=== PATIENT | female | born 1940 | race Caucasian/White ===

== ENCOUNTER → 2016-09-03 | Outpatient (REF) | payer MEDICARE ==
[2016-09-03 14:05] LABS: ALBUMIN 3.8 GM/DL (3.2-5.2); ALBUMIN/GLOBULIN RATIO 1.15 (1.00-1.93); ALKALINE PHOSPHATASE 102 U/L (45-117); ALT/SGPT 16 U/L (12-78); ANION GAP 10 MEQ/L (8-16); AST/SGOT 18 U/L (15-37); BILIRUBIN,TOTAL 0.2 MG/DL (0.2-1.0); BLOOD UREA NITROGEN 17 MG/DL (7-18); CALCIUM LEVEL 9.2 MG/DL (8.8-10.2); CARBON DIOXIDE LEVEL 26 MEQ/L (21-32); CHLORIDE LEVEL 105 MEQ/L (98-107); GLOMERULAR FILTRATION RATE > 60.0 (>39); GLUCOSE, FASTING 91 MG/DL (83-110); POTASSIUM SERUM 4.6 MEQ/L (3.5-5.1); SODIUM LEVEL 141 MEQ/L (136-145); TOTAL PROTEIN 7.1 GM/DL (6.4-8.2)
== END ==
LOC: M SFHCPLAZ 09:27
PROVIDERS: ATTEND Nurse Practitioner Adult Health
DX: I10 Essential (primary) hypertension (principal); E55.9 Vitamin D deficiency, unspecified
CPT/HCPCS: 36415; 80053; 82306; G0463

== ENCOUNTER → 2016-09-24 | Outpatient (REF) | payer MEDICARE ==
[2016-09-28 00:15] LABS: BABESIOSIS LEVEL IGG <1:10 (Neg:<1:10); BABESIOSIS LEVEL IGM <1:10 (Neg:<1:10); Lyme Disease IgG/IgM Antibodie <0.91 ISR (0.00-0.90); Lyme Disease IgM Ab Quantitati <0.80 index (0.00-0.79)
== END ==
LOC: M LAB REF 16:28
PROVIDERS: ATTEND Physician Assistant
DX: S20.462A Insect bite (nonvenomous) of left back wall of thorax, initial encounter (principal); X58.XXXA Exposure to other specified factors, initial encounter; Y92.89 Other specified places as the place of occurrence of the external cause; Y93.89 Activity, other specified; Y99.8 Other external cause status

== ENCOUNTER → 2017-02-26 | Outpatient (CLI) | payer MEDICARE ==
[~2017-02-26] MED LIST: E-Z-GAS II EFFERVESCENT PACKET (SODIUM BICARB./CITRIC ACID/SIMETHICONE) As Ordered ONE; E-Z-HD 98% w/w 340GM SUSP BTL As Ordered ONE; E-Z-PAQUE 96% w/w SUSP 176GM BTL As Ordered ONE
--- NOTE | 2017-02-26 18:46 | REP ---
Esophagram The procedure was performed under the direct supervision of Dr. Swann. The images were reviewed with Dr. Swann. A single view PA chest x-ray is submitted as a sales specialist film. There is no change compared to a previous chest x-ray performed on 08/12/2016. Liquid barium and gas producing granules were given in the erect position as well as liquid barium in the prone oblique positions in order to perform a double contrast esophagram examination. The oral and pharyngeal stages of deglutition are unremarkable. There are esophageal transport there are tertiary waves demonstrated. There is no esophagitis stricture or mucosal ring. There is a sliding type hiatal hernia present. Gastroesophageal reflux is not demonstrated on this examination. Impression: 1. There is a sliding type hiatal hernia present. 2. Esophageal dysmotility. 1 minute and 7 seconds of fluoro time was utilized for this procedure. Reviewed by WALKER Whitt 02/26/2017 04:13 PSigned by Richi Swann MD 02/26/2017 06:37 P
== END ==
LOC: M RAD 08:54
PROVIDERS: ATTEND Nurse Practitioner Adult Health
DX: K44.9 Diaphragmatic hernia without obstruction or gangrene (principal)

== ENCOUNTER → 2017-05-13 | Outpatient (CLI) | payer MEDICARE ==
--- NOTE | 2017-05-13 15:15 | REP ---
RIGHT KNEE, FIVE VIEWS: HISTORY: Pain. There is no acute fracture or dislocation. There is narrowing of the joint spaces. Osteophytes are present on the tibia and patella. The bony structure is osteopenic. IMPRESSION: Degenerative change as described above. Signed by Jordan De Paz MD 05/13/2017 03:18 P
== END ==
LOC: M LAB 14:42
PROVIDERS: ATTEND Nurse Practitioner Adult Health
DX: M25.761 Osteophyte, right knee (principal); M25.561 Pain in right knee

== ENCOUNTER → 2017-11-05 | Outpatient (CLI) | payer MEDICARE | LOC: M LRY 14:45 | DX: M16.11 Unilateral primary osteoarthritis, right hip (principal); M25.551 Pain in right hip; M47.816 Spondylosis without myelopathy or radiculopathy, lumbar region; R10.2 Pelvic and perineal pain | CPT/HCPCS: G0463 ==

== ENCOUNTER → 2018-01-20 | Outpatient (CLI) | payer MEDICARE | LOC: M RAD 07:13 | DX: M48.062 Spinal stenosis, lumbar region with neurogenic claudication (principal) | CPT/HCPCS: 72148 ==

== ENCOUNTER → 2018-02-11 | Outpatient (CLI) | payer MEDICARE | LOC: M LRY 14:56 | DX: M51.36 Other intervertebral disc degeneration, lumbar region (principal); M51.37 Other intervertebral disc degeneration, lumbosacral region; M43.17 Spondylolisthesis, lumbosacral region; R07.81 Pleurodynia; M53.3 Sacrococcygeal disorders, not elsewhere classified | CPT/HCPCS: 71101; 90715 ==

== ENCOUNTER → 2018-04-16 | Outpatient (REF) | payer MEDICARE ==
[2018-04-16 14:08] LABS: BASO % 0.7 % (0.0-1.0); EOS # 0.2 10^3/uL (0.0-0.50); EOS % 3.2 % (0.0-3.0); HEMATOCRIT 45.8 % (36.0-47.0); HEMOGLOBIN 14.8 g/dl (12.0-15.5); IMMATURE GRANULOCYTE % 0.5 % (0-3.0); LYMPH # 1.7 10^3/uL (1.5-4.5); LYMPH % 28.9 % (24.0-44.0); MEAN CORPUSCULAR HEMOGLOBIN 29.1 pg (27.0-33.0); MEAN CORPUSCULAR HGB CONC 32.3 g/dl (32.0-36.5); MONO # 0.4 10^3/uL (0.0-0.8); MONO % 7.2 % (0.0-5.0); NEUTROPHILS # 3.6 10^3/uL (1.8-7.7); NEUTROPHILS % 59.5 % (36.0-66.0); PLATELET COUNT, AUTOMATED 224 10^3/uL (150-450); RED BLOOD COUNT 5.09 10^6/uL (4.00-5.40)
[2018-04-16 14:55] LABS: ERYTHROCYTE SEDIMENTATION RATE 11 mm/hr (0-30)
[2018-04-16 15:03] LABS: ALBUMIN 3.9 GM/DL (3.2-5.2); ALBUMIN/GLOBULIN RATIO 1.15 (1.00-1.93); ALKALINE PHOSPHATASE 114 U/L (45-117); ALT/SGPT 17 U/L (12-78); ANION GAP 10 MEQ/L (8-16); AST/SGOT 15 U/L (7-37); BILIRUBIN,TOTAL 0.4 MG/DL (0.2-1.0); BLOOD UREA NITROGEN 14 MG/DL (7-18); CALCIUM LEVEL 9.1 MG/DL (8.8-10.2); CARBON DIOXIDE LEVEL 24 MEQ/L (21-32); CHLORIDE LEVEL 106 MEQ/L (98-107); CREATININE FOR GFR 0.71 MG/DL (0.55-1.30); FOLATE 11.9 NG/ML; GLOMERULAR FILTRATION RATE > 60.0 (>39); GLUCOSE, FASTING 99 MG/DL (70-100); POTASSIUM SERUM 4.1 MEQ/L (3.5-5.1); RHEUMATOID FACTOR QUANT < 10.0 IU/ML (<15.0); SODIUM LEVEL 140 MEQ/L (136-145); TOTAL PROTEIN 7.3 GM/DL (6.4-8.2)
[2018-04-16 16:25] LABS: ESTIMATED AVERAGE GLUCOSE 111 MG/DL (60-110); HEMOGLOBIN A1c 5.5 %
[2018-04-21 11:12] LABS: ALBUMIN 4.24 GM/DL (3.29-5.55); ALBUMIN % 58.1 % (55.8-66.1); ALPHA-1-GLOBULINS 0.29 GM/DL (0.17-0.41); BETA-1-GLOBULINS 0.45 GM/DL (0.28-0.60); BETA-1-GLOBULINS % 6.2 % (4.7-7.2); BETA-2-GLOBULINS % 5.5 % (3.2-6.5); GAMMA GLOBULIN % 15.2 % (11.1-18.8); GAMMA GLOBULINS 1.11 GM/DL (0.65-1.58)
[2018-04-21 11:44] LABS: DRVV SCREEN 40.9 SEC
[2018-04-22 00:07] LABS: ANCA-ATYPICAL <1:20 titer (Neg:<1:20); ANTI DOUBLE STRAND-DNA AB <1 IU/mL (0-9); ANTINUCLEAR ANTIBODIES DIRECT Negative (Negative); COPPER PLASMA 135 ug/dL (72-166); CYTOPLASMIC NEUTROP AB ANCA-C <1:20 titer (Neg:<1:20); LEAD BLOOD ADULT 2 ug/dL (0-4); Lyme Disease IgG/IgM Antibodie <0.91 ISR (0.00-0.90); Lyme Disease IgM Ab Quantitati <0.80 index (0.00-0.79); MERCURY LEVEL None Detected ug/L (0.0-14.9); PERINUCLEAR AB ANCA-P <1:20 titer (Neg:<1:20); SJOGREN'S ANTI SS-A <0.2 AI (0.0-0.9); SJOGREN'S ANTI SS-B <0.2 AI (0.0-0.9); VITAMIN B1 LEVEL WHOLE BLOOD 160.4 nmol/L (66.5-200.0); VITAMIN B6,PYRIDOXAL PHOSPHATE 5.3 ug/L (2.0-32.8); VITAMIN E(GAMMA TOCOPHEROL) 1.1 mg/L (0.5-4.9)
== END ==
LOC: M LABNEURO 13:03
DX: G62.9 Polyneuropathy, unspecified (principal); E07.9 Disorder of thyroid, unspecified
CPT/HCPCS: 82525

== ENCOUNTER → 2018-06-09 | Outpatient (CLI) | payer MEDICARE | LOC: M LAB 13:54 | DX: M51.35 Other intervertebral disc degeneration, thoracolumbar region (principal); G62.9 Polyneuropathy, unspecified | CPT/HCPCS: 72070 ==

== ENCOUNTER → 2018-06-09 | Outpatient (REF) | payer MEDICARE ==
[2018-06-09 16:34] LABS: BASO # 0.1 10^3/uL (0.0-0.2); BASO % 1.1 % (0.0-1.0); EOS # 0.2 10^3/uL (0.0-0.50); EOS % 3.4 % (0.0-3.0); HEMATOCRIT 42.1 % (36.0-47.0); HEMOGLOBIN 13.7 g/dl (12.0-15.5); IMMATURE GRANULOCYTE % 0.4 % (0-3.0); LYMPH # 2.1 10^3/uL (1.5-4.5); LYMPH % 37.2 % (24.0-44.0); MEAN CORPUSCULAR HEMOGLOBIN 29.2 pg (27.0-33.0); MEAN CORPUSCULAR HGB CONC 32.5 g/dl (32.0-36.5); MEAN CORPUSCULAR VOLUME 89.8 fl (80.0-96.0); MONO # 0.5 10^3/uL (0.0-0.8); NEUTROPHILS # 2.8 10^3/uL (1.8-7.7); NEUTROPHILS % 48.9 % (36.0-66.0); PLATELET COUNT, AUTOMATED 258 10^3/uL (150-450); RED BLOOD COUNT 4.69 10^6/uL (4.00-5.40); RED CELL DISTRIBUTION WIDTH 12.8 % (11.5-14.5); WHITE BLOOD COUNT 5.7 10^3/uL (4.0-10.0)
[2018-06-09 16:51] LABS: C REACTIVE PROTEIN QUANTITATIV < 0.30 MG/DL (0.00-0.30); FREE T4 0.86 NG/DL (0.76-1.46); VITAMIN B12 LEVEL 495 PG/ML (247-911)
[2018-06-09 16:57] LABS: ERYTHROCYTE SEDIMENTATION RATE 8 mm/hr (0-30)
[2018-06-09 17:06] LABS: URINE TOTAL PROTEIN 6.2 MG/DL (0-12)
[2018-06-11 13:43] LABS: ALBUMIN 4.02 GM/DL (3.29-5.55); ALBUMIN % 57.4 % (55.8-66.1); ALPHA-1-GLOBULIN % 3.9 % (2.9-4.9); ALPHA-2-GLOBULINS % 10.9 % (7.1-11.8); BETA-1-GLOBULINS % 6.4 % (4.7-7.2); BETA-2-GLOBULINS % 5.4 % (3.2-6.5)
[2018-06-11 13:44] LABS: ALPHA-1-GLOBULINS 0.27 GM/DL (0.17-0.41); ALPHA-2-GLOBULINS 0.76 GM/DL (0.42-0.99); BETA-1-GLOBULINS 0.45 GM/DL (0.28-0.60); BETA-2-GLOBULINS 0.38 GM/DL (0.19-0.55); GAMMA GLOBULINS 1.12 GM/DL (0.65-1.58)
[2018-06-11 14:22] LABS: ANTINUCLEAR ANTIBODIES DIRECT Negative (Negative)
[2018-06-11 15:21] LABS: UPEP INTERPRETATION NO M-SPIKE NOTED; URINE VOLUME RANDOM ML
== END ==
LOC: M SFHCPLAZ 12:55
DX: G62.9 Polyneuropathy, unspecified (principal)

== ENCOUNTER → 2018-06-10 | Outpatient (CLI) | payer MEDICARE | LOC: M WHC 08:00 | DX: Z12.31 Encounter for screening mammogram for malignant neoplasm of breast (principal); Z80.3 Family history of malignant neoplasm of breast; Z85.820 Personal history of malignant melanoma of skin; Z80.0 Family history of malignant neoplasm of digestive organs; Z80.41 Family history of malignant neoplasm of ovary | CPT/HCPCS: 77067 ==

== ENCOUNTER → 2018-07-27 | Outpatient (REF) | payer MEDICARE ==
[2018-07-31 00:35] LABS: Lyme Disease IgG/IgM Antibodie <0.91 ISR (0.00-0.90); Lyme Disease IgM Ab Quantitati <0.80 index (0.00-0.79)
== END ==
LOC: M SFHCPLAZ 11:09
PROVIDERS: ATTEND Family Medicine
DX: G60.9 Hereditary and idiopathic neuropathy, unspecified (principal)
CPT/HCPCS: 36415; 86617; G0463

== ENCOUNTER 2018-10-28 22:52 | Observation (INO) | payer MEDICARE ==
[~2018-10-28] VITALS: Ht 172.7 cm; Wt 86.4 kg
[2018-10-28] MEDS ORDERED: CARD1TAB5 PO (22:56)
[2018-10-28] MEDS ORDERED: EFFE37.5 PO (22:56)
--- NOTE | 2018-10-29 00:06 | REP ---
Clinical: Fall. Rib pain . Comparison: None. Technique: PA and lateral. Findings: The mediastinum and cardiac silhouette are normal. The lung gregorio are clear and without acute consolidation, effusion, or pneumothorax. No obvious rib fracture is appreciated although evaluation is limited and if necessary complete wrist series should be considered. Impression: 1. No acute cardiopulmonary process. Electronically Signed by Master Lopez MD 10/28/2018 11:58 P
[2018-10-29] MEDS ORDERED: NORCO, ANEXSIA 5/325MG TABLET (HYDROcodone/ACETAMINOPHEN) PO ONE (00:15)
--- NOTE | 2018-10-29 01:22 | REPVR ---
EXAM: CT Chest Without Contrast EXAM DATE/TIME: 10/28/2018 11:59 PM CLINICAL HISTORY: 78 years old, female; Injury or trauma; Fall; Initial encounter; Blunt trauma (contusions or hematomas); Additional info: Fall, chest pain, back pain TECHNIQUE: Imaging protocol: Axial computed tomography images of the chest without intravenous contrast. Coronal and sagittal reformatted images were created and reviewed. 3D rendering: MIP reconstructed images were created and reviewed. Radiation optimization: All CT scans at this facility use at least one of these dose optimization techniques: automated exposure control; mA and/or kV adjustment per patient size (includes targeted exams where dose is matched to clinical indication); or iterative reconstruction. COMPARISON: CR Chest, 2 view PA, Lat 10/28/2018 11:39 PM FINDINGS: Lungs: Minimal bilateral lower lobe fibro-atelectatic change and bronchiectasis. Pleural space: Normal. No pneumothorax. No pleural effusion. Heart: Normal. No cardiomegaly. No pericardial effusion. Aorta: Normal. No aortic aneurysm. Lymph nodes: Unremarkable. No enlarged lymph nodes. Bones/joints: Osteopenia. Nondisplaced fractures of the right 6th-9th of ribs laterally. Slightly displaced fracture of the right 8th rib posteriorly and nondisplaced fracture of the adjacent 7th rib posteriorly. 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 No significant posterior extension is noted. Question of nondisplaced fracture of the right transverse process of T9, however. Soft tissues: Subcutaneous induration posteriorly to the right of midline at approximately the T8-T10 levels. Gallbladder and bile ducts: The gallbladder is contracted with no stones. IMPRESSION: 1. Nondisplaced fractures of the right 6th-9th ribs laterally and slightly displaced fracture of the right 8th rib posteriorly with nondisplaced fracture of the adjacent 7th rib posteriorly. 2. 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 No significant posterior extension is noted, however, there is question of a nondisplaced fracture of the right transverse process of T9. 3. Minimal bilateral lower lobe fibro-atelectatic change and bronchiectasis. 4. Subcutaneous edema posteriorly to the right of midline from approximately T8-T10. 5. Otherwise negative CT chest. Electronically signed by: Juan Luis De La Rosa On 10/29/2018 01:21:55 AM
[2018-10-29] MEDS ORDERED: VENL37.598 PO (02:33)
[2018-10-29] MEDS ORDERED: ASPI81TAEC PO (02:33)
[2018-10-29] MEDS ORDERED: CHEL100T4 PO (02:33)
[2018-10-29] MEDS ORDERED: DILT120C31 PO (02:33)
[2018-10-29] MEDS ORDERED: KETOROLAC 30 MG/ML VIAL (J1885) IV PRN (02:45)
[2018-10-29] MEDS ORDERED: MORPHINE 4 MG/ML 1ML VIAL/SYRINGE (J2270) IV PRN (02:45)
[2018-10-29 03:00] VITALS: BP 171/90
[2018-10-29] MEDS ORDERED: SLF 3 ML SYR IV PRN (03:00)
[2018-10-29 06:00] VITALS: BP 168/78
[2018-10-29] MEDS ORDERED: SLF 3 ML SYR IV SCH (06:00)
[2018-10-29] MEDS ORDERED: VENLAFAXINE **XR** 37.5 MG CAPSULE PO SCH (09:00)
[2018-10-29 10:57] LABS: BASO # 0.1 10^3/uL (0.0-0.2); BASO % 0.7 % (0.0-1.0); EOS # 0.1 10^3/uL (0.0-0.50); EOS % 1.8 % (0.0-3.0); HEMATOCRIT 37.8 % (36.0-47.0); HEMOGLOBIN 12.6 g/dl (12.0-15.5); LYMPH % 26.5 % (24.0-44.0); MEAN CORPUSCULAR HEMOGLOBIN 29.4 pg (27.0-33.0); MEAN CORPUSCULAR HGB CONC 33.3 g/dl (32.0-36.5); MEAN CORPUSCULAR VOLUME 88.1 fl (80.0-96.0); MONO # 0.7 10^3/uL (0.0-0.8); NEUTROPHILS # 4.6 10^3/uL (1.8-7.7); NEUTROPHILS % 61.6 % (36.0-66.0); PLATELET COUNT, AUTOMATED 227 10^3/uL (150-450); RED BLOOD COUNT 4.29 10^6/uL (4.00-5.40); WHITE BLOOD COUNT 7.4 10^3/uL (4.0-10.0)
[2018-10-29 11:06] LABS: INR 1.11; PROTHROMBIN TIME 14.4 SECONDS (12.1-14.4)
[2018-10-29 11:07] LABS: PARTIAL THROMBOPLASTIN TIME 24.5 SECONDS (25.4-37.6)
[2018-10-29 11:11] VITALS: BP 168/78
[2018-10-29 11:20] LABS: BLOOD UREA NITROGEN 18 MG/DL (7-18); CALCIUM LEVEL 8.7 MG/DL (8.8-10.2); CARBON DIOXIDE LEVEL 25 MEQ/L (21-32); CHLORIDE LEVEL 110 MEQ/L (98-107); CREATININE FOR GFR 0.79 MG/DL (0.55-1.30); GLOMERULAR FILTRATION RATE > 60.0 (>39); GLUCOSE, FASTING 103 MG/DL (70-100); POTASSIUM SERUM 3.8 MEQ/L (3.5-5.1); SODIUM LEVEL 140 MEQ/L (136-145)
--- NOTE | 2018-10-29 12:34 | HPE ---
DATE OF ADMISSION: 10/29/2018 CHIEF COMPLAINT: T9 thoracic spine fracture. HISTORY OF PRESENT ILLNESS: This 78-year-old female has preexisting adenopathy to her right lower extremity from about the mid tibia downwards. She was walking to the washroom last night and had a mechanical fall. There was no loss of consciousness, head injury or any other injuries. She was able to ambulate and get up and around with some assistance last night, but increased pain brought her into the hospital. She has no previous history of spine fractures or problems of her spine. In fact, she has had MRIs of her spine that were in fact negative for any kind of compressive pathology. Due to this preexisting neuropathy with decreased sensation in her right lower extremity, she has seen Dr. Bates in the past as well for nerve conduction/electromyogram (EMG) studies. They apparently were normal, so the diagnosis is still up in the air as to the cause of her right lower extremity sensory changes. She has no perianal sensation changes. No changes in the lower extremity function or preexisting neuropathy, and no constitutional symptoms such as fever, chills, night sweats, weight loss or anything else. Bowel and bladder function were normal. PAST MEDICAL HISTORY: Includes heart arrhythmia and depression. MEDICATIONS: Include: - venlafaxine 37.5 mg by mouth once daily - diltiazem 120 mg by mouth once daily NO KNOWN DRUG ALLERGIES. SURGICAL HISTORY: She had an attempted cardiac ablation as well as total abdominal hysterectomy (KRISHAN), appendectomy, hysterectomy, left distal femur osteomyelitis debridement times two, and rotator cuff surgery. 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 She does not smoke cigarettes. She is here with her and they are living independently. PHYSICAL EXAMINATION: Vital signs: Blood pressure 168/78. Pulse rate 69. Temperature 97.2. Respiratory rate 16. 95% on room air. She is alert and times three. Mood and affect pleasant and positive. She is lying supine in bed and she is able to sit up and roll over independently. Inspection of her back reveals no obvious overlying redness, swelling, ecchymosis, deformity or atrophy. On palpation, there is only a mild tenderness at the approximately mid to lower thoracic spine with no bogginess or other findings. Upon questioning, she does have a normal sensation in perianal region. Inspection of the lower extremities reveal normal alignment. No overlying redness, swelling, ecchymosis or deformity. She had normal sensation aside from as she previously stated about the mid tibia down throughout her entire foot on the dorsum and plantar aspect of that. Normal sensation throughout the left lower extremity. She was strong from L2 to S1, although slightly weak in right L5, I would grade as a 4+/5. No clonus. Feet are warm and perfused. Reflexes were slightly diminished at the knees and ankles but symmetric bilaterally. Plantars equivocal. Chest x-rays reviewed. This shows global diffuse thoracic kyphosis but no collapse or acute change. CT chest was also reviewed. This shows nondisplaced fractures of the right 6th to 9th ribs and slightly just displaced fracture of right 8th rib posteriorly with a nondisplaced fracture of the adjacent 7th rib posteriorly. There is also ankylosis through much of the thoracic spine with transverse fracture involving the anterior inferior aspect of the T9 segment right greater than left with extension at T9-10 interspace. No posterior extension is noted. There is question of a nondisplaced fracture of the right transverse process of T9, but again this is somewhat limited by bone quality as well as this is not a dedicated study of thoracic spine. I see no acute kyphotic changes at that level. The canal appears patent at that level as well. This involves minimal height loss. The fractures relatively undisplaced. ASSESSMENT AND PLAN: This 78-year-old female appears to be ambulating well and has no new neurologic deficits. This appears to be a stable fracture, although there is some concern given the fact that she has ankylosis throughout the thoracic spine. I do believe this to be a stable fracture; however, I have suggested to both the patient as well as will write in this note that she should followup with Dr. Gray in 3-5 days, our local spine surgeon at [facility] ([facility] for repeat imaging. I let him as well as the patient and the general surgeon, Dr. Rueda, who is following the patient that this should be the plan for her for outpatient followup. I have also warned the patient as to any red flag symptoms that would warrant immediate return to the clinic or the emergency department, including changes in bowel or bladder function and changes in her lower extremity function and sensory problems. I think it is reasonable to discharge her home today as according to Dr. Rueda she is doing well with her breathing and incentive spirometer despite the rib fractures. The patient is quite comfortable and agrees with plan. Thank you very much for involving me in her care.
[2018-10-29] MEDS ORDERED: NORC1TAB7 PO (12:55)
--- NOTE | 2018-10-29 15:12 | HPE ---
DATE OF ADMISSION: 10/29/2018 CHIEF COMPLAINT: Fall. HISTORY OF PRESENT ILLNESS: This is a 78-year-old female who has a past medical history significant for neuropathy. She states that she had to use the bathroom last night and ended falling because she could not see where she was going. She was unable to really feel where she is going as she has neuropathy from about the mid tibia downwards. She denies any loss of consciousness, head injury, bruising or other injuries except for pain to her ribcage. As it was dark, she suffered a mechanical fall and landed onto a metal box. REVIEW OF SYSTEMS GENERAL: Denies fevers, chills, night sweats, weight changes. HEENT: No new vision or hearing changes. She denies sore throat, runny nose, stuffy nose. PULMONARY: No wheezing coughs or difficulty breathing. CARDIOVASCULAR: No palpitations, chest pain, orthopnea, paroxysmal nocturnal dyspnea, or edema. GASTROINTESTINAL: Denies any nausea, vomiting, diarrhea, constipation. GENITOURINARY: Denies any hesitancy, dysuria, frequency or difficulty urinating. MUSCULOSKELETAL: Positive for pain to her ribcage. No changes to lower extremity range of motion. Denies any other lumps or bumps or any other pain. NEUROLOGICAL: Positive for lower extremity neuropathy as above. Denies any loss of bowel or bladder function. PSYCHIATRIC: Negative for anxiety, positive for history of depression. INTEGUMENTARY: Denies any rashes stria or dermal lesions. ENDOCRINE: Denies any night sweats, diarrhea, constipation, tremor, polydipsia or polyuria. HEMATOLOGIC: Denies any easy bruising or bleeding. LYMPHATIC: Denies any new lumps or bumps anywhere. PAST MEDICAL HISTORY: Vitamin D deficiency. Depression. Hypercholesterolemia. 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 Basal cell carcinoma of the forehead. Osteopenia. Coronary artery disease. Neuropathy of the lower extremities. Left knee osteomyelitis at 29 and 30. This was surgically removed. Spinal stenosis. Osteoarthritis. 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 Osteomyelitis of the left femur debrided at age 29. Hysterectomy in 1986. Appendectomy 1962. Right Meniscal repair at [facility] [address] Esteves 2006, which was normal. FAMILY HISTORY: Diabetes mellitus type 1, diabetes mellitus type 2, breast cancer, colon cancer, uterine cancer. Osteoporosis, hypertension. SOCIAL HISTORY: The patient is a nonsmoker. She denies any drug use, She denies alcohol use. 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. She is and recently returned from [place]. PHYSICAL EXAMINATION VITALS: Temperature 97.2, pulse 69 and regular, respiratory rate 19, blood pressure 171/90, pulse ox is 98% on room air. GENERAL: This is a pleasant elderly female in no acute distress. She is able to sit up and roll over independently. HEENT: Eyes are clear. Pupils are equal, round and reactive to light. Mucous membranes are moist. NECK: No lymphadenopathy is appreciated. LUNGS: Clear to auscultation bilaterally. No wheezes, rhonchi or rales. HEART: Regular rate and rhythm. No murmurs, gallops or rubs. ABDOMEN: Obese, no distension. Normoactive bowel sounds. No pain to palpation in all four quadrants. MUSCULOSKELETAL: There is no redness, swelling, ecchymosis, no deformities of this back. She has some mild tenderness to palpation in the mid or lower thoracic spine. SKIN: There is no erythema or edema bilaterally. NEURO: The patient has diminished sensation from about the mid tibia down through her entire foot on the right. VASCULAR: The patient has good pulses throughout. LABORATORY DATA: CBC: WBC 7.4, hemoglobin 12.2, hematocrit 37.8, platelets 227. CHEMISTRY: Sodium 140, potassium 3.8, chloride 110, carbon dioxide 25, anion gap 5, BUN 18, creatinine 0.79, fasting glucose 103, calcium 8.7. COAGULATION: PT 14.4, INR 1.11, APTT 24.5. IMAGING STUDIES: Chest x-ray done 10/28/2018: Showed no obvious rib fracture however, the evaluation was limited. No acute cardiopulmonary process is appreciated. CT of the chest done showed nondisplaced fractures of the right 6th through 9th ribs laterally and slightly displaced fracture of the right 8th rib posteriorly with nondisplaced fracture of the adjacent 7th rib posteriorly. 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 No significant posterior extension is noted. However, there is question of a nondisplaced fracture of the right transverse process of T9. Minimal bilateral lower lobe fibroatelectatic changes and bronchiectasis. Subcutaneous edema posteriorly to the right of midline from approximately T8 to T10. Otherwise negative chest CT. ASSESSMENT: This is a 78-year-old female who suffered a mechanical fall and ended up with rib fractures. PLAN: 1. Rib fractures: Admit to observation. We will make sure that she has pain controlled and complete incentive spirometry. We have ordered an orthopaedic consultation, Dr. Flores will see her sometime today. As long as the patien's pain is well-controlled and she is able to perform incentive spirometry then she can be probably discharged home sometime today. 2. Depression: Continue her home dose of venlafaxine. 3. Hypertension, continue the patient's home diltiazem. DISPOSITION: Admit for observation, pending possible discharge for pain control and incentive spirometry. My faculty preceptor for this patient encounter was physically present during the encounter and was fully available. All aspects of the patient interview, examination, medical decision making process, and medical care plan development were reviewed and approved by the faculty preceptor. The faculty preceptor is aware and concurs with the plan as stated in the body of this note and will attest to such by his/her co-signature. I was present for the entire H+P. She had a T9 fracture in addition to the rib fractures. Dr. Flores saw her for the T9 fracture, and cleared her to go home with a follow up for Dr. Gray in the office in a week. Rib fractures are stable as well, and we will d/c her today to follow up as needed. Bethel WEATHERS
== END 2018-10-29 13:37 | disposition home or self-care (01) ==
LOC: M ED 22:52 → UNDOADMOB 23:00 → M ED INP 23:00 → M MSPAV 23:00 → UNDOADMOB 10-29 01:55 → M ED INP 10-29 01:55 → M MSPAV 10-29 03:00 → UNDODISOB 10-29 13:37 → M ED INP 11-18 16:19 → M MSPAV 11-18 16:19
PROVIDERS: ADMIT Family Medicine; ATTEND Family Medicine
DX: S22.41XA Multiple fractures of ribs, right side, initial encounter for closed fracture (principal); S22.079A Unspecified fracture of T9-T10 vertebra, initial encounter for closed fracture; W19.XXXA Unspecified fall, initial encounter; Y92.008 Other place in unspecified non-institutional (private) residence as the place of occurrence of the external cause; Y93.9 Activity, unspecified; Y99.9 Unspecified external cause status; E55.9 Vitamin D deficiency, unspecified; E78.00 Pure hypercholesterolemia, unspecified; I10 Essential (primary) hypertension; I25.10 Atherosclerotic heart disease of native coronary artery without angina pectoris; Z79.82 Long term (current) use of aspirin; F32.9 Major depressive disorder, single episode, unspecified; Z79.899 Other long term (current) drug therapy; Z88.8 Allergy status to other drugs, medicaments and biological substances; Z91.81 History of falling
CPT/HCPCS: 36415; 71046; 71250; 80048; 85025; 85610; 85730; 96374; 99284; G0378; J1885

== ENCOUNTER 2018-11-03 17:50 | Emergency (ER) | payer MEDICARE ==
[~2018-11-03] VITALS: Ht 172.7 cm; Wt 84.1 kg
[~2018-11-03 17:50] MED LIST changes: +ASPI81TAEC PO; +CARD1TAB5 PO; +CHEL100T4 PO; +DILT120C31 PO; -E-Z-GAS II EFFERVESCENT PACKET (SODIUM BICARB./CITRIC ACID/SIMETHICONE) As Ordered ONE; -E-Z-HD 98% w/w 340GM SUSP BTL As Ordered ONE; -E-Z-PAQUE 96% w/w SUSP 176GM BTL As Ordered ONE; +EFFE37.5 PO; +NORC1TAB7 PO; +VENL37.598 PO
[2018-11-03] MEDS ORDERED: BONI1TAB PO (17:58)
[2018-11-03] MEDS ORDERED: EQL400CA9 PO (17:58)
[2018-11-03] MEDS ORDERED: HYDR-3713 PO (17:58)
--- NOTE | 2018-11-03 18:40 | REP ---
PA and lateral chest: Comparison is 10/28/2018. On the study today the posterior sulci are obscured on the lateral view as an interval change suggestive of lower lobe infiltrate versus small posterior pleural effusion. This cannot be lateralized as is identified only on the lateral view. Lung gregorio otherwise clear. Cardiac size normal. The stalin, mediastinum, skeletal structures are unremarkable. Impression: Small lower lobe infiltrate versus pleural effusion as described, as an interval change from 10/28/2018. CT might be considered for confirmation if felt clinically indicated. Electronically Signed by Trung Sheppard MD 11/03/2018 06:32 P
[2018-11-03 20:33] LABS: BASO % 0.2 % (0.0-1.0); EOS # 0.1 10^3/uL (0.0-0.50); EOS % 0.9 % (0.0-3.0); HEMATOCRIT 45.8 % (36.0-47.0); HEMOGLOBIN 15.1 g/dl (12.0-15.5); LYMPH # 1.9 10^3/uL (1.5-4.5); LYMPH % 21.9 % (24.0-44.0); MEAN CORPUSCULAR HEMOGLOBIN 29.2 pg (27.0-33.0); MEAN CORPUSCULAR VOLUME 88.4 fl (80.0-96.0); MONO # 0.6 10^3/uL (0.0-0.8); MONO % 6.9 % (0.0-5.0); NEUTROPHILS % 69.8 % (36.0-66.0); PLATELET COUNT, AUTOMATED 253 10^3/uL (150-450); RED BLOOD COUNT 5.18 10^6/uL (4.00-5.40); WHITE BLOOD COUNT 8.7 10^3/uL (4.0-10.0)
[2018-11-03 20:46] LABS: INR 0.99; PROTHROMBIN TIME 13.2 SECONDS (12.1-14.4)
[2018-11-03 20:47] LABS: PARTIAL THROMBOPLASTIN TIME 26.2 SECONDS (25.4-37.6)
[2018-11-03 20:49] LABS: ALBUMIN 3.5 GM/DL (3.2-5.2); ALT/SGPT 19 U/L (12-78); BILIRUBIN,DIRECT < 0.1 MG/DL (0.0-0.2); BILIRUBIN,TOTAL 0.3 MG/DL (0.2-1.0); BLOOD UREA NITROGEN 18 MG/DL (7-18); CARBON DIOXIDE LEVEL 24 MEQ/L (21-32); CHLORIDE LEVEL 107 MEQ/L (98-107); CK-MB VALUE MASS < 1.0 NG/ML (<3.6); CPK CREATINE PHOSPHOKINASE 51 U/L (26-192); CREATININE FOR GFR 0.65 MG/DL (0.55-1.30); GLOMERULAR FILTRATION RATE > 60.0 (>39); GLUCOSE, FASTING 107 MG/DL (70-100); MB/CK RELATIVE INDEX 1.96 (< OR =4); POTASSIUM SERUM 4.8 MEQ/L (3.5-5.1); SODIUM LEVEL 137 MEQ/L (136-145); TOTAL PROTEIN 7.3 GM/DL (6.4-8.2); TROPONIN I < 0.02 NG/ML (< 0.10)
[2018-11-03] MEDS ORDERED: ISOVUE-370 76% 100ML VIAL (Q9967) As Ordered ONE (21:52)
--- NOTE | 2018-11-03 23:16 | REPVR ---
EXAM: CT Angiography Chest With Contrast EXAM DATE/TIME: 11/03/2018 10:14 PM CLINICAL HISTORY: 78 years old, female; Signs and symptoms; Shortness of breath; Additional info: SOB TECHNIQUE: Imaging protocol: Axial computed tomographic angiography images of the chest with intravenous contrast using CT angiography protocol. Coronal and sagittal reformatted images were created and reviewed. 3D rendering: MIP reconstructed images were created and reviewed. Radiation optimization: All CT scans at this facility use at least one of these dose optimization techniques: automated exposure control; mA and/or kV adjustment per patient size (includes targeted exams where dose is matched to clinical indication); or iterative reconstruction. Contrast material: ISOVOUE 370 Contrast volume: 75 ml Contrast route: IV COMPARISON: CT Chest without contrast 10/29/2018 12:05 AM FINDINGS: Pulmonary arteries: Normal. No pulmonary emboli. Aorta: Normal. No aortic aneurysm. No aortic dissection. Lungs: Scattered areas of linear atelectasis in bilateral lower lobes. Low lung volumes. Pleural space: Small right and trace left pleural effusion. Heart: Normal. No cardiomegaly. No pericardial effusion. Mediastinum: Small hiatal hernia. Upper abdomen: Elevation of right hemidiaphragm. Lymph nodes: Unremarkable. No enlarged lymph nodes. Bones/joints: Multiple rib fractures on the right side from 6-9 days as seen on prior exam. Diffuse demineralization of the bones without ankylosis. Fracture of the T9 vertebral body similar to previous study. Soft tissues: Unremarkable. Other findings: Atherosclerosis. IMPRESSION: No evidence of pulmonary embolism. Scattered areas of linear atelectasis in bilateral lower lobes. Low lung volumes. Small right and trace left pleural effusion Electronically signed by: Mansi Vasquez On 11/03/2018 23:16:10 PM
[2018-11-03 23:41] VITALS: O2SAT 92
[2018-11-04] VITALS: BP 158/70
--- NOTE | 2018-11-04 06:43 | ED PDOC ---
Post-Departure Follow-Up dr frank faxed formal report of cxr and cta chest for fu Kalie Adams MD Nov 04, 2018 06:43
--- NOTE | 2018-11-04 08:30 | ECGEPIP ---
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
== END 2018-11-04 00:30 | disposition home or self-care (01) ==
LOC: M ED 17:50
DX: J90 Pleural effusion, not elsewhere classified (principal); I44.0 Atrioventricular block, first degree; I45.10 Unspecified right bundle-branch block; I25.10 Atherosclerotic heart disease of native coronary artery without angina pectoris; E78.5 Hyperlipidemia, unspecified; E55.9 Vitamin D deficiency, unspecified; F32.9 Major depressive disorder, single episode, unspecified; M85.80 Other specified disorders of bone density and structure, unspecified site; M19.90 Unspecified osteoarthritis, unspecified site; M48.00 Spinal stenosis, site unspecified; Z79.01 Long term (current) use of anticoagulants; Z79.899 Other long term (current) drug therapy
CPT/HCPCS: 71046; 71275; 80048; 80076; 82550; 82553; 84439; 84443; 84484; 85025; 85610; 85730; 93005; 93041; 94760; 99285; Q9967

== ENCOUNTER → 2019-01-25 | Outpatient (REF) | payer MEDICARE ==
[~2019-01-25] MED LIST changes: +BONI1TAB PO; +EQL400CA9 PO; +HYDR-3713 PO
[2019-01-25 17:04] LABS: BLOOD UREA NITROGEN 17 MG/DL (7-18); GLOMERULAR FILTRATION RATE > 60.0 (>39)
== END ==
LOC: M SFHCPLAZ 12:51
PROVIDERS: ATTEND Family Medicine
DX: H53.2 Diplopia (principal)

== ENCOUNTER → 2019-01-27 | Outpatient (CLI) | payer MEDICARE ==
[~2019-01-27] MED LIST changes: +PROHANCE 279.3MG/ML 15ML VIAL (A9576) As Ordered ONE; +PROHANCE 279.3MG/ML 5ML VIAL (A9576) As Ordered ONE
--- NOTE | 2019-01-27 16:57 | REP ---
MR Brain without and with contrast History: Double vision Contrast: ProHance 17 ml Areas of increased signal intensity on T2-weighted images are present in the periventricular and subcortical white matter. This represents small-vessel ischemic disease. There is no intraparenchymal hemorrhage, infarct, mass or midline shift. There is no abnormal enhancement. The ventricular system and cortical sulci are dilated consistent with mild volume loss. There is no extracerebral collection. The sinuses are clear. Impression: 1. Small vessel ischemic disease. 2. Mild volume loss. Electronically Signed by Jordan De Paz MD 01/27/2019 04:49 P
== END ==
LOC: M RAD 15:18
PROVIDERS: ATTEND Family Medicine
DX: I67.82 Cerebral ischemia (principal)
CPT/HCPCS: 70553; A9576

== ENCOUNTER → 2019-08-03 | Outpatient (REF) | payer MEDICARE ==
[~2019-08-03] MED LIST changes: -PROHANCE 279.3MG/ML 15ML VIAL (A9576) As Ordered ONE; -PROHANCE 279.3MG/ML 5ML VIAL (A9576) As Ordered ONE
[2019-08-03 18:04] LABS: APPEARANCE, URINE CLOUDY (CLEAR); BACTERIA, URINE AUTO 2+ (NEGATIVE); BILIRUBIN, URINE AUTO NEGATIVE (NEGATIVE); BLOOD, URINE BLOOD NEGATIVE (NEGATIVE); COLOR, URINE YELLOW (YELLOW); GLUCOSE, URINE (UA) AUTO NEGATIVE (NEGATIVE); KETONE, URINE AUTO NEGATIVE (NEGATIVE); LEUKOCYTE ESTERASE, URINE AUTO NEGATIVE (NEGATIVE); MUCUS, URINE SMALL (NEGATIVE); NITRITE, URINE AUTO NEGATIVE (NEGATIVE); PROTEIN, URINE AUTO NEGATIVE (NEGATIVE); RBC, URINE AUTO 4 /HPF (0-3); SPECIFIC GRAVITY URINE AUTO 1.018 (1.002-1.035); SQUAMOUS EPITHELIAL CELL UR AU 3 /HPF (0-6); UROBILINOGEN, URINE AUTO 0.2 mg/dL (0.0-2.0); WBC, URINE AUTO 1 /HPF (0-3)
== END ==
LOC: M SFHCPLAZ 16:50
PROVIDERS: ATTEND Nurse Practitioner Family
DX: R30.0 Dysuria (principal)
CPT/HCPCS: 81001; 81002; 87086; G0463

== ENCOUNTER → 2019-10-14 | Outpatient (CLI) | payer MEDICARE ==
--- NOTE | 2019-10-14 15:47 | REPPI ---
CHEST, TWO VIEWS: Two views of the chest are performed and compared to a prior study of 11/03/2018. There is no acute infiltrate or pulmonary edema. Heart is normal in size. There is mild calcification of the thoracic aorta. The mediastinal silhouette is unchanged. There are degenerative changes of the spine. IMPRESSION: No acute pulmonary disease. Electronically Signed by Trung Hankins MD 10/14/2019 05:43 P
== END ==
LOC: M PLAIMG 14:55
PROVIDERS: ATTEND Internal Medicine
DX: R05 Cough (principal)
CPT/HCPCS: 71046; G0463

== ENCOUNTER → 2019-10-19 | Outpatient (REF) | payer MEDICARE ==
[2019-10-19 17:27] LABS: BASO # 0.1 10^3/uL (0.0-0.2); BASO % 0.8 % (0.0-1.0); EOS # 0.2 10^3/uL (0.0-0.5); EOS % 2.4 % (0.0-3.0); HEMATOCRIT 46.7 % (36.0-47.0); HEMOGLOBIN 15.3 g/dl (12.0-15.5); LYMPH # 1.9 10^3/uL (1.5-5.0); LYMPH % 26.6 % (24.0-44.0); MEAN CORPUSCULAR HGB CONC 32.8 g/dl (32.0-36.5); MEAN CORPUSCULAR VOLUME 91.6 fl (80.0-96.0); MONO # 0.6 10^3/uL (0.0-0.8); MONO % 7.7 % (0.0-5.0); NEUTROPHILS # 4.5 10^3/uL (1.5-8.5); NEUTROPHILS % 62.2 % (36.0-66.0); PLATELET COUNT, AUTOMATED 238 10^3/uL (150-450); WHITE BLOOD COUNT 7.2 10^3/uL (4.0-10.0)
[2019-10-19 17:51] LABS: BLOOD UREA NITROGEN 15 MG/DL (7-18); CALCIUM LEVEL 9.5 MG/DL (8.8-10.2); CARBON DIOXIDE LEVEL 26 MEQ/L (21-32); CHLORIDE LEVEL 108 MEQ/L (98-107); CREATININE FOR GFR 0.76 MG/DL (0.55-1.30); GLOMERULAR FILTRATION RATE > 60.0 (>39); GLUCOSE, FASTING 95 MG/DL (70-100); POTASSIUM SERUM 4.4 MEQ/L (3.5-5.1); SODIUM LEVEL 139 MEQ/L (136-145)
== END ==
LOC: M SFHCPLAZ 13:40
PROVIDERS: ATTEND Nurse Practitioner Family
DX: R06.02 Shortness of breath (principal)
CPT/HCPCS: 80048; 85025; G0463

== ENCOUNTER → 2019-10-21 | Outpatient (CLI) | payer MEDICARE ==
--- NOTE | 2019-10-21 16:19 | REP ---
CT chest without contrast: History: Shortness of breath and cough. Comparison chest CT study November 03, 2018. Findings: Preliminary digital wallpaper hanger helper radiographs are unremarkable. The lungs are symmetrically aerated. No infiltrate is seen. There is minimal linear fibrosis in the lung bases bilaterally. No lung mass lesion is appreciated. There is a granulomatous calcification in the right lower lobe unchanged from the prior study. No significant pulmonary nodule is appreciated. Vascular calcification is noted. No hilar or mediastinal mass or adenopathy is observed. No pleural or pericardial effusion is evident. Normal adrenal glands are seen. The visualized upper abdominal structures are unremarkable. No bony destructive lesion is seen. Impression: No active cardiopulmonary disease seen. Mild bibasilar linear fibrosis. Vascular calcification. Electronically Signed by Josh Lopez MD 10/21/2019 04:28 P
== END ==
LOC: M RAD 15:02
PROVIDERS: ATTEND Nurse Practitioner Family
DX: R05 Cough (principal); R06.02 Shortness of breath

== ENCOUNTER 2020-01-21 14:08 | Inpatient (IN) | payer MEDICARE ==
[~2020-01-21] VITALS: Ht 172.7 cm; Wt 86.3 kg
--- NOTE | 2020-01-21 14:52 | REP ---
CT brain: 01/21/2020. Indication: Stroke. Technique: Unenhanced axial CT images of the brain were obtained from skull base to vertex with coronal reconstructions provided. Comparison: 01/27/2019. Findings: There is no acute intracranial hemorrhage, acute cortical infarction, mass effect, hydrocephalus, acute calvarial fracture or significant fluid within the paranasal sinuses/mastoid air cells. Age-related volume loss is present. Patchy areas of white matter hypoattenuation are present within the cerebral hemispheres most consistent with chronic small vessel disease. Impression: No acute intracranial process. Electronically Signed by David Harris DO 01/21/2020 02:42 P
[2020-01-21 14:57] LABS: BASO # 0.1 10^3/uL (0.0-0.2); BASO % 0.7 % (0.0-1.0); EOS # 0.1 10^3/uL (0.0-0.5); EOS % 1.8 % (0.0-3.0); HEMATOCRIT 44.8 % (36.0-47.0); HEMOGLOBIN 14.4 g/dl (12.0-15.5); LYMPH # 1.6 10^3/uL (1.5-5.0); LYMPH % 24.1 % (24.0-44.0); MEAN CORPUSCULAR HEMOGLOBIN 29.1 pg (27.0-33.0); MEAN CORPUSCULAR HGB CONC 32.1 g/dl (32.0-36.5); MEAN CORPUSCULAR VOLUME 90.7 fl (80.0-96.0); MONO # 0.7 10^3/uL (0.0-0.8); MONO % 9.9 % (0.0-5.0); NEUTROPHILS # 4.3 10^3/uL (1.5-8.5); NEUTROPHILS % 63.2 % (36.0-66.0); PLATELET COUNT, AUTOMATED 258 10^3/uL (150-450); RED BLOOD COUNT 4.94 10^6/uL (4.00-5.40); WHITE BLOOD COUNT 6.8 10^3/uL (4.0-10.0)
[2020-01-21 15:17] VITALS: BP 158/64
--- NOTE | 2020-01-21 15:22 | REP ---
Portable chest x-ray: Single view. History: CVA. Comparison chest x-ray: November 03, 2018. Findings: Monitoring electrodes overlie the chest. Lungs are well inflated and clear. Heart is not enlarged. The aorta somewhat tortuous. Pulmonary vasculature is not increased. There is a orthopedic anchor in the humeral head on the right. Impression: No active cardiopulmonary disease. Electronically Signed by Josh Lopez MD 01/21/2020 03:14 P
[2020-01-21 15:26] LABS: CK-MB VALUE MASS 1.3 NG/ML (<3.6); CPK CREATINE PHOSPHOKINASE 51 U/L (26-192); MB/CK RELATIVE INDEX 2.55 (< OR =4); TROPONIN I < 0.02 NG/ML (< 0.10)
[2020-01-21 15:29] LABS: INR 1.05; PROTHROMBIN TIME 13.4 SECONDS (11.8-14.0)
[2020-01-21 15:30] LABS: PARTIAL THROMBOPLASTIN TIME 28.3 SECONDS (25.0-38.4)
[2020-01-21] MEDS ORDERED: VITMTA PO (16:04)
[2020-01-21] MEDS ORDERED: VITA-157 PO (16:04)
[2020-01-21] MEDS ORDERED: MAG-400T7 PO (16:04)
[2020-01-21] MEDS ORDERED: PILL CUTTER 1 EACH XX PRN (19:30)
--- NOTE | 2020-01-21 20:15 | REPVR ---
PROCEDURE INFORMATION: Exam: MR Head Without Contrast Exam date and time: 01/21/2020 7:17 PM Age: 79 years old Clinical indication: Weakness, extremity; Right; Additional info: TIA TECHNIQUE: Imaging protocol: MR of the head without contrast. COMPARISON: MRI-Brain W/O FOLL BY WITH 01/27/2019 3:34 PM FINDINGS: Age-related volume loss. Major vascular flow voids at the skull base are preserved. No extra-axial fluid collection. No midline shift or intracranial mass effect. Nonspecific white matter gliosis, probable chronic microvascular ischemia. There is right frontal and parietal susceptibility secondary to remote hemorrhage. There are several small foci of diffusion restriction involving the left frontal and parietal lobes measuring up to 5 mm in maximal dimension. Associated T2 prolongation. Visualized paranasal sinuses and mastoid air cells are clear. IMPRESSION: There are several small acute to early subacute ischemic infarcts involving the left frontal and parietal lobes measuring up to 5 mm in maximal dimension. Electronically signed by: Josemanuel Monteiro On 01/21/2020 20:15:13 PM
--- NOTE | 2020-01-21 20:18 | REPVR ---
PROCEDURE INFORMATION: Exam: MR Angiogram Head Without Contrast, Arteries Exam date and time: 01/21/2020 7:09 PM Age: 79 years old Clinical indication: Weakness; Additional info: TIA TECHNIQUE: Imaging protocol: MR angiogram head without contrast. Exam focused on the arteries. COMPARISON: MRI-Brain W/O FOLL BY WITH 01/27/2019 3:34 PM FINDINGS: Anterior cerebral arteries: Intracranial segment is patent with no significant stenosis. No aneurysm. Right internal carotid artery: Intracranial segment is patent with no significant stenosis. No aneurysm. 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 Right posterior cerebral artery: Carotid dominant right posterior cerebral artery with hypoplastic right P1 segment. Right vertebral artery: No occlusion or significant stenosis. No aneurysm. Left internal carotid artery: Intracranial segment is patent with no significant stenosis. No aneurysm. Left middle cerebral artery: No occlusion or significant stenosis. No aneurysm. Left posterior cerebral artery: No occlusion or significant stenosis. No aneurysm. Left vertebral artery: Left vertebral artery is dominant. Basilar artery: No occlusion or significant stenosis. No aneurysm. IMPRESSION: 1. No hemodynamically significant stenosis or large vessel occlusion. 2. 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 Electronically signed by: Josemanuel Monteiro On 01/21/2020 20:17:56 PM
--- NOTE | 2020-01-21 20:44 | ECGEPIP ---
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
[2020-01-21 20:45] VITALS: BP 180/90
--- NOTE | 2020-01-21 20:47 | REPVR ---
PROCEDURE INFORMATION: Exam: US Duplex Bilateral Extracranial Arteries Exam date and time: 01/21/2020 8:36 PM Age: 79 years old Clinical indication: Other: TIA TECHNIQUE: Imaging protocol: Real-time Duplex ultrasound scan of the bilateral carotid and vertebral arteries combining cruz scale, color Doppler and spectral waveform analysis. Bilateral exam. COMPARISON: CT Head without contrast 01/21/2020 2:22 PM FINDINGS: Right common carotid artery: Peak systolic velocity of the right common carotid artery is 70 cm/s. Right internal carotid artery: Peak systolic velocity of the right internal carotid artery is 94 cm/s. There is mild atheromatous plaquing at the right carotid bulb. Right ICA/CCA ratio: Right ICA CCA ratio is 1.34. Right external carotid artery: No stenosis in the origin. Right vertebral artery: Unremarkable. Antegrade flow. Left common carotid artery: Peak systolic velocity of the left common carotid artery is 84 cm/s. Left internal carotid artery: Peak systolic velocity of the left internal carotid artery is 71 cm/s. Mild atheromatous plaquing at the left carotid bulb. Left ICA/CCA ratio: Left ICA CCA ratio is 0.84. Left external carotid artery: No stenosis in the origin. Left vertebral artery: Unremarkable. Antegrade flow. IMPRESSION: No evidence of hemodynamically significant stenosis. REFERENCES: SRU CRITERIA. The degree of internal carotid artery stenosis is based on criteria defined by the Society of Radiologists in Ultrasound (SRU). Normal is no stenosis. Mild is less than 50% stenosis. Moderate is 50-69% stenosis. Severe is greater than 69% stenosis to near occlusion. Near occlusion is a markedly narrowed lumen. Total occlusion is no detectable patent lumen. Electronically signed by: Josemanuel Monteiro On 01/21/2020 20:46:56 PM
[2020-01-21 22:00] VITALS: BP 150/90
[2020-01-22] VITALS (8 sets, daily range): BP systolic 132–176; BP diastolic 60–73
--- NOTE | 2020-01-22 00:49 | HPEPDOC ---
[facility] Medical History & Physical Date of Admission Jan 21, 2020 Date of Service: Jan 21, 2020 Primary Care Physician: YONNY GOVEA MD Attending Physician: ASHER RODRIGUEZ DO History and Physical CHIEF COMPLAINT: Right arm weakness HISTORY OF PRESENT ILLNESS: Ms. Bustillos is a 79-year-old female. The patient reports that she was in her usual state of health, and she was returning from the grocery store when she noticed that her right arm became immediately numb and completely flaccid. She looked at her phone and noted that it occurred precisely at 13:42 today. Knowing that something was wrong she immediately came to the emergency department. A CT scan of the head was negative in the ED, however after arrival to the ED she slowly began to recuperate function of her right upper extremity. Over the subsequent few hours she was slowly able to begin moving her fingers, began to regain sensation, and then lift her arm, and then she regained her strength once again. By the time of my evaluation she seems to have essentially recovered fully, although after holding her arm up, when she goes to set up back down it does drop fairly quickly. Nevertheless she does not have any pronator drift, and at the time of my exam she does have 5/5 strength in her upper extremities. 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 Mother had breast and colon and uterine cancer. Father at age 73 with dementia. REVIEW OF SYSTEMS: Constitutional: Patient denies fevers, chills, night sweats, recent weight gain/loss. HEENT: Patient denies blurred or double vision, transient visual disturbances, postnasal drip, epistaxis, sore throat, difficulty chewing or swallowing food. Cardiovascular: Patient denies chest discomfort/pain, palpitations, exertional dyspnea, orthopnea, edema of the extremities, claudication. Respiratory: Patient denies dyspnea, wheezing, cough, hemoptysis, sputum production. Gastrointestinal: Patient denies nausea, vomiting, diarrhea, constipation, abdom inal pain, melena, hematochezia, hematemesis, jaundice. PHYSICAL EXAMINATION: General: Awake, alert, oriented 3. She is not in any acute distress. HEENT: Head normocephalic atraumatic, conjunctiva are pink, sclera are nonicteric, buccal mucosa is pink and moist with no lesions in the oropharynx. Hearing is grossly intact to conversation. Respiratory: Clear to auscultation bilaterally with no wheezes, rales, or rhonchi. Cardiovascular: Regular rate and rhythm, with no rubs, gallops, or murmur. Abdomen: Soft, nontender, nondistended, no hepatosplenomegaly appreciated. Bowel sounds present. Extremities: 2+ pulses in the radial and dorsalis pedis bilaterally. No evidence of clubbing or cyanosis. Neuro: At the time of my examination she seems to regained all function of her right upper extremity. She does continue to have some mild paresthesia of the right upper extremity, however sensation is intact to light touch throughout the face, shoulders, and bilateral lower extremities to the knees. Below the knees she has paresthesias, however this has been present for at least 15+ years and has been confirmed with EMG previously. Muscle strength of the bilateral upper extremities is 5/5. DTRs in the bilateral biceps, brachioradialis, and right knee are 2+, Left knee is 1+, however she has had multiple surgeries on this knee. She does not have any pronator drift. Finger to nose is coordinated bilaterally. [id number] is coordinated bilaterally. IMAGING: CT scan of head negative. ASSESSMENT: TIA -Brain MRI/MRA, and carotid ultrasound ordered -Admit to PCU with neuro checks and vital signs every 2 hours -Neurology has been consulted, case discussed with Dr. Douglass -Continue with home dose of baby aspirin, Plavix started. 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-nerve conduction study 2016 Severe spinal stenosis L4-S1 on MRI in 2015 - This limits the efficacy of neurological examination of her lower extremities DVT prophylaxis -Lovenox Vital Signs Vital Signs Date Time Temp Pulse Resp B/P (MAP) Pulse Ox O2 Delivery O2 Flow Rate FiO2 01/21/20 20:45 98.8 75 16 180/90 (120) 97 Room Air Laboratory Data Labs 24H Laboratory Tests 2 01/21/20 14:41: Immature Granulocyte % (Auto) 0.3, Neutrophils (%) (Auto) 63.2, Lymphocytes (%) (Auto) 24.1, Monocytes (%) (Auto) 9.9H, Eosinophils (%) (Auto) 1.8, Basophils (%) (Auto) 0.7, Neutrophils # (Auto) 4.3, Lymphocytes # (Auto) 1.6, Monocytes # (Auto) 0.7, Eosinophils # (Auto) 0.1, Basophils # (Auto) 0.1, Nucleated Red Blood Cells % (auto) 0.0, Prothrombin Time 13.4, Prothromb Time International Ratio 1.05, Activated Partial Thromboplast Time 28.3, Total Creatine Kinase 51, Creatine Kinase MB 1.3, Creatine Kinase MB Relative Index 2.55, Troponin I < 0.02 01/21/20 14:54: POC Glucose (Misc Panel) 104, POC Sodium (Misc Panel) 143, POC Potassium (Misc Panel) 4.0, POC Chloride (Misc Panel) 108, POC Total CO2 (Misc Panel) 22.0L, POC Blood Urea Nitrogen (Misc Panel 14, POC Ionized Calcium (Misc Panel) 4.8, POC Creatinine (Misc Panel) 0.7, POC Hematocrit (Misc Panel) 44.0 01/21/20 14:56: POC Troponin I (Misc) 0.01 CBC/BMP Laboratory Tests 01/21/20 14:41 Home Medications Scheduled Aspirin (Aspirin EC) 81 Mg Tabec, 81 MG PO DAILY Diltiazem HCl (Dilt-Xr) 120 Mg Cap, 120 MG PO DAILY Ibandronate Sodium (Boniva) 150 Mg Tablet, 150 MG PO QMONTH with full glass of water at least 30 mins before first food or drink of the day; remain in upright position for at least 30 mins Magnesium Oxide (Magnesium Oxide) 400 Mg Tablet, 200 MG PO DAILY Multivitamins (Thera M Plus Tablet) 1 Each Tablet, 1 TAB PO DAILY Venlafaxine HCl (Venlafaxine HCl ER) 37.5 Mg Capcr, 37.5 MG PO DAILY Vitamin E (Dl,Tocopheryl Acet) (Vitamin E) Unknown Strength Capsule, 1 CAP PO DAILY Allergies Coded Allergies: No Known Allergies (Unverified , 10/28/18) A-FIB/CHADSVASC A-FIB History Current/History of A-Fib/PAF?: No Current PO Anticoag Therapy: No ASHER RODRIGUEZ DO Jan 22, 2020 00:49
[2020-01-22] MEDS: MULTIVITAMINS/MINERALS THERAP 1 TAB PO SCH (08:25)
[2020-01-22] MEDS: VENLAFAXINE **XR** 37.5 MG CAPSULE PO SCH (08:25)
[2020-01-22] MEDS: CLOPIDOGREL 75 MG TAB PO SCH (08:25)
[2020-01-22] MEDS: ASPIRIN 81 MG ENTERIC TAB PO SCH (08:25)
[2020-01-22] MEDS: MAGNESIUM OXIDE 400MG TAB (MAG-OX) PO SCH (08:25)
[2020-01-22] MEDS: ENOXAPARIN 40MG/0.4ML SYRINGE (J1650 PER 10MG) SC SCH (08:26)
[2020-01-22 09:15] LABS: CHOLESTEROL RISK RATIO 4.384 (<5); THYROID STIMULATING HORMONE 1.08 uIU/ML (0.358-3.740)
[2020-01-22 10:15] LABS: HEMOGLOBIN A1c 5.9 %
[2020-01-22] MEDS ORDERED: SLF 3 ML SYR IV PRN (12:00)
[2020-01-22] MEDS: SLF 3 ML SYR IV SCH ×2 (14:27→22:00)
--- NOTE | 2020-01-22 15:20 | ECHO ---
DATE: 01/22/2020 REFERRING PHYSICIAN: Dr. Coreas INDICATION: Transient ischemic attack (TIA). HEIGHT: 122 cm WEIGHT: 87 kg. DIMENSIONS: Aorta: 3.2 LA: 3.3 IVS: 1.2 LV: 3.8 LVPW: 1.2 IVC: 1.7 Mitral E wave velocity: 68 A wave: 97 E prime septal: 6.0 E prime lateral: 8.2 FINDINGS: The study is of good technical quality. The patient is in sinus rhythm. Normal left ventricular (LV) size with mild left ventricular hypertrophy (LVH) and hyperdynamic LV systolic function, estimated left ventricular ejection fraction (LVEF) 65-70%. No segmental wall motion abnormalities are appreciated. Right ventricle also normal size and systolic function. Both atria appear grossly normal. Aortic valve is tricuspid. It is minimally sclerotic but mobility is preserved. Mitral, tricuspid and pulmonic valves appear normal. No pericardial effusion is noted. Inferior vena cava is normal size. Aortic root, aortic arch and visualized segment of abdominal aorta appear normal. Doppler interrogation reveals competent aortic valve without significant stenosis or insufficiency. There is trace mitral and trace tricuspid insufficiency. Calculated pulmonary artery pressure is within normal limits. Pulmonic valve is functionally competent. Mitral inflow pattern and tissue Doppler imaging of mitral annulus reveal grade 1 diastolic dysfunction. Injection of agitated saline through peripheral vein reveals no evidence for [id number] shunt. CONCLUSIONS: 1. Study is of good technical quality, the patient is in sinus rhythm. 2. Normal LV size with mild LVH and preserved LV systolic function. Grade 1 diastolic dysfunction. 3. No significant valvular disease. 4. Normal central venous pressure and likely normal pulmonary artery pressure. 5. Negative "bubble study." COMMENT: No obvious findings to explain etiology of TIA. [facility]
--- NOTE | 2020-01-22 16:12 | IPNPDOC ---
Subjective Date Seen The patient was seen on 01/22/20. Subjective Chief Complaint/HPI Pt is a 79 yo female who presented to [facility] due to sudden onset right arm numbness and and flaccidness which was noted to start at 1342 on 01/21/2020. Pt was noted to slowly recuperate function of her right upper extremity while in ED and over the next few hours she was slowly able to regain movement, strength, and sensation. Upon admission pt was noted to have a fairly quickly arm drop with 5/5 strength in her upper extremities. Patient is examined at bedside today. She denies any numbness, tingling, loss of sensation, extremity weakness, visual field loss, or hearing changes. Denies any chest pain, palpitation, dyspnea, or abdominal pain. General: Denies: Chills Constitutional: Denies: Chills, Fever Pulmonary: Denies: Dyspnea Cardiovascular: Denies: Chest Pain, Palpitations Gastrointestinal: Denies: Nausea, Vomiting, Abdominal Pain Neurological: Denies: Weakness, Numbness, Incoordination, Change in speech, Confusion Objective Physical Examination General Exam: Positive: Alert, Cooperative, No Acute Distress Eye Exam: Positive: PERRLA, Conjunctiva & lids normal, EOMI; Negative: Sclera icteric ENT Exam: Positive: Atraumatic, Mucous membr. moist/pink Neck Exam: Positive: Supple Chest Exam: Positive: Clear to auscultation, Normal air movement; Negative: Rales, Rhonchi, Wheezing, Diminished Heart Exam: Positive: Rate Normal, Regular Rhythm, Normal S1, Normal S2; Negative: Murmurs Abdomen Exam: Positive: Normal bowel sounds, Soft; Negative: Tenderness Extremity Exam: Negative: Cyanosis, Edema, Swelling Skin Exam: Positive: Nl turgor and temperature Neuro Exam: Positive: Normal Speech, Strength at 5/5 X4 ext, Normal Tone, Sensation Intact, Cranial Nerves 3-12 NL, Other (Mild dysgraphia. No hemineglect with drawing clock test. No paresthesia noted upon touch in face or extremities. No upper extremity motor drift for 10 seconds b/l. No lower extremity motor drift for 5 seconds b/l. ) Psych Exam: Positive: Mental status NL, Mood NL, Memory Intact, Oriented x 3 Assessment /Plan Assessment Pt is a 79 yo female who presented to [facility] due to sudden onset right arm numbness and and flaccidness with MRI head evidence of left parietal and frontal infarct noted to slowly recuperate motor and sensation function at [facility] ED currently only has mild dysgraphia. 1. Left frontal and parietal ischemic cerebral vascular accident. Initial right arm numbness and flaccidness; resolved. Neurology following. MRI showed ischemia in left frontal and parietal ischemic cCurrently mild dysgraphia.Carotid US showed no stenosis b/l. Cont home med aspirin 81mg. Cont plavix. Change neurochecks to Q4H. Discussed with Dr. Douglass with goal BP to keep below 180/90; recommended to start zetia and EP for loop recorder. Echo with neg bubble study. Cont tele monitor. Refer pt to EP for loop recorder when patient is ready for discharge. 2. Hypercholesterolemia. Hx of hypercholesterolemia noted to be intolerant to multiple statins. Start Zetia. 3. Depression. Cont home med Venlafaxine. 4. History of PACs and PVCs, possible PAT/A flutter on previous Holter. Cont tele. Hold home med cardizem for now. Will refer pt to EP for loop recorder when patient is ready for discharge. 5. 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 Pt also has PMH of severe spinal stenosis L4-S1 on MRI in 2015. Currently no paresthesia. Cont to monitor 6. Grade 1 diastolic dysfunction. No signs of heart failure including dyspnea, orthopnea, chest pain, or palpitation. Cont to monitor. Will resume home me Cardizem after 48hrs after ischemic stroke symptom onset. 7. Right MCA aneurysm. 1 mm x 2 mm right MCA aneurysm noted at the right MCA bifurcation shown on MRA head. Cont to monitor for now. Neurology following. DVT prophylaxis: Lovenox Plan/VTE VTE Prophylaxis Ordered?: Yes VS, I&O, 24H, Fishbone Vital Signs/I&O Vital Signs Date Time Temp Pulse Resp B/P (MAP) Pulse Ox O2 Delivery O2 Flow Rate FiO2 01/22/20 12:00 97.1 65 20 135/70 (91) 97 01/22/20 08:00 Room Air I&O- Last 24 Hours up to 6 AM 01/22/20 06:00 Intake Total 600 ml Output Total 0 ml Balance 600 ml Laboratory Data 24H LABS Laboratory Tests 2 01/22/20 08:12: Estimated Mean Plasma Glucose 123H, Hemoglobin A1c 5.9, Triglycerides Level 101, Total Cholesterol 228H, LDL Cholesterol 156H, Non-HDL Cholesterol (LDL + VLDL) 176, Total HDL Cholesterol 52, Cholesterol/HDL Ratio 4.384, Thyroid Stimulating Hormone (TSH) 1.080 GME ATTESTATION I have personally evaluated and examined the patient. Discussed with resident/student regarding plan of care and agree with the above assessment and plan. MIL ROBLERO DO Jan 22, 2020 16:12 ARTEM CALIXTO MD Feb 07, 2020 08:05
[2020-01-22] MEDS: EZETIMIBE 10 MG TAB (ZETIA) PO SCH (17:04)
[2020-01-23] VITALS: BP 139/66
[2020-01-23 04:00] VITALS: BP 133/63
[2020-01-23 05:41] LABS: HEMATOCRIT 41.2 % (36.0-47.0); HEMOGLOBIN 13.7 g/dl (12.0-15.5); MEAN CORPUSCULAR HEMOGLOBIN 29.7 pg (27.0-33.0); MEAN CORPUSCULAR HGB CONC 33.3 g/dl (32.0-36.5); MEAN CORPUSCULAR VOLUME 89.4 fl (80.0-96.0); PLATELET COUNT, AUTOMATED 214 10^3/uL (150-450); RED BLOOD COUNT 4.61 10^6/uL (4.00-5.40); WHITE BLOOD COUNT 5.5 10^3/uL (4.0-10.0)
[2020-01-23 05:57] LABS: BLOOD UREA NITROGEN 14 MG/DL (7-18); CALCIUM LEVEL 8.7 MG/DL (8.8-10.2); CARBON DIOXIDE LEVEL 25 MEQ/L (21-32); CHLORIDE LEVEL 109 MEQ/L (98-107); CREATININE FOR GFR 0.74 MG/DL (0.55-1.30); GLOMERULAR FILTRATION RATE > 60.0 (>39); GLUCOSE, FASTING 93 MG/DL (70-100); SODIUM LEVEL 141 MEQ/L (136-145)
[2020-01-23] MEDS: SLF 3 ML SYR IV SCH (06:14)
[2020-01-23 07:58] VITALS: BP 128/62
[2020-01-23 07:59] VITALS: BP 140/69
[2020-01-23] MEDS: ASPIRIN 81 MG ENTERIC TAB PO SCH (08:58)
[2020-01-23] MEDS: ENOXAPARIN 40MG/0.4ML SYRINGE (J1650 PER 10MG) SC SCH (08:58)
[2020-01-23] MEDS: MAGNESIUM OXIDE 400MG TAB (MAG-OX) PO SCH (08:59)
[2020-01-23] MEDS: VENLAFAXINE **XR** 37.5 MG CAPSULE PO SCH (08:59)
[2020-01-23] MEDS: EZETIMIBE 10 MG TAB (ZETIA) PO SCH (08:59)
[2020-01-23] MEDS: CLOPIDOGREL 75 MG TAB PO SCH (08:59)
[2020-01-23] MEDS: MULTIVITAMINS/MINERALS THERAP 1 TAB PO SCH (08:59)
[2020-01-23 09:06] VITALS: BP 140/69
--- NOTE | 2020-01-23 10:51 | IPNPDOC ---
Subjective Date Seen The patient was seen on 01/23/20. Objective Physical Examination General Exam: Positive: Alert, Cooperative, No Acute Distress Eye Exam: Positive: PERRLA, Conjunctiva & lids normal, EOMI; Negative: Sclera icteric ENT Exam: Positive: Atraumatic, Mucous membr. moist/pink Neck Exam: Positive: Supple Chest Exam: Positive: Clear to auscultation, Normal air movement; Negative: Rales, Rhonchi, Wheezing, Diminished Heart Exam: Positive: Rate Normal, Regular Rhythm, Normal S1, Normal S2; Negative: Murmurs Abdomen Exam: Positive: Normal bowel sounds, Soft; Negative: Tenderness Extremity Exam: Negative: Cyanosis, Edema, Swelling Skin Exam: Positive: Nl turgor and temperature Neuro Exam: Positive: Normal Speech, Strength at 5/5 X4 ext, Normal Tone, Sensation Intact, Cranial Nerves 3-12 NL, Other (Mild dysgraphia. No hemineglect with drawing clock test. No paresthesia noted upon touch in face or extremities. No upper extremity motor drift for 10 seconds b/l. No lower extremity motor drift for 5 seconds b/l. ) Psych Exam: Positive: Mental status NL, Mood NL, Memory Intact, Oriented x 3 Assessment /Plan Plan/VTE VTE Prophylaxis Ordered?: Yes VS, I&O, 24H, Fishbone Vital Signs/I&O Vital Signs Date Time Temp Pulse Resp B/P (MAP) Pulse Ox O2 Delivery O2 Flow Rate FiO2 01/23/20 09:06 74 140/69 01/23/20 07:59 96.8 16 92 Room Air I&O- Last 24 Hours up to 6 AM 01/23/20 06:00 Intake Total 1140 ml Output Total 0 ml Balance 1140 ml Laboratory Data 24H LABS Laboratory Tests 2 01/23/20 05:06: Nucleated Red Blood Cells % (auto) 0.0, Anion Gap 7L, Glomerular Filtration Rate > 60.0, Calcium Level 8.7L CBC/BMP Laboratory Tests 01/23/20 05:06 Sher Weston MD Jan 23, 2020 10:51
[2020-01-23] MEDS ORDERED: EZET10TA21 PO (11:45)
[2020-01-23] MEDS ORDERED: CLOP75TA2 PO (11:45)
--- NOTE | 2020-01-23 11:49 | DS.PDOC ---
Discharge Summary General Date of Admission Jan 22, 2020 at 16:14 Date of Discharge 01/23/2020 Primary Care Physician: YONNY MARTÍNEZ MD Attending Physician: Sher Weston MD Specialist/Consultants Involve: ARTUR DOUGLASS MD Discharge Summary ADMITTING DIAGNOSES: 1. TIA. 2. Hypercholesterolemia. 3. Depression. 4. History of PACs and PVCs, possibly PAT/A flutter on previous Holter. 5. 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 DISCHARGE DIAGNOSES: 1. 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 2. Hypercholesterolemia. 3. Depression. 4. Prior history of arrhythmia, unclear whether this is a stroke risk factor or not. 5. 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 6. Grade 1 diastolic congestive heart failure, chronic. 7. Right middle cerebral artery aneurysm. PROCEDURES PERFORMED DURING STAY: None. ADMISSION HISTORY: Ms. Bustillos presented to the [facility] ER due to sudden onset right arm numbness and and flaccidness. Please see the admission history and physical for the remaining details. HOSPITAL COURSE: Ms. Bustillos presented to the ER with signs consistent with a TIA or CVA. Initially she was making good recovery and the thought was that she probably had a TIA, however, neuroimaging confirm she did in fact have several small ischemic infarcts in her left frontal and parietal regions. The pattern looked embolic which rodrigo further scrutiny to her history of an arrhythmia. The patient herself reports that she has seen Dr. Lubna Arango, an translator deaf for this arrhythmia. Per the patient he was going to do an ablation, but decided that the aberrant area was too close to her sinoatrial node and decided to fall back to medication therapy instead. Interestingly, the patient noted that she had an episode of "irregular heartbeat" about a day before this current episode occurred. This sensation was enough that it made her think she ought to try to connect with Dr. Arango again. I spoke to Dr. Douglass who reports that he is okay with her discharge today and would like to see her within 1-2 weeks in his office. The patient should call his office for follow-up. The big question his mind is whether she should be anticoagulated prior to leaving on the assumption that she might have an underlying thrombogenic rhythm, or if we should wait until this is proven before we anticoagulate her. In order to answer this to the best of our ability I reviewed her telemetry which showed no episodes of an arrhythmia that would be considered thrombogenic. Therefore I decided to discharge her on aspirin and Plavix and wait until she sees the translator deaf before deciding about formal anticoagulation. I discussed this with the patient prior to discharge and, after considering the pros and cons of each option, she agreed with my proposed plan. She will take anticoagulation if necessary, but is cautious about doing so until we can improve it is necessary. At the time of discharge her only residual from the stroke was a vague sense of dysgraphia in her right hand. Specifically she reports she is not able to generate her signature as she has done for many decades prior. This is interesting and might pose a legal quandary, but should not keep her in the hospital for a longer period of time. She is willing to consider occupational therapy on an outpatient basis if this is indicated. DISCHARGE CONDITION: Stable. FOLLOW-UP: The patient is being discharged on a Friday and was asked to call several offices tomorrow for a hospital follow-up appointment. These include Dr. Martínez's office for a roughly 1 week follow-up, Dr. Douglass's office for a one to two-week follow-up, and Dr. Arango's office. ACTIVITY: As tolerated. DIET: Low-fat low-cholesterol. DISCHARGE MEDICATIONS: Please see below. New medications from this hospitalization include Plavix 75 mg by mouth daily and ezetimibe 10 mg daily. ALLERGIES: Please see below. LABORATORY DATA: Please see below. IMAGING: Chest x-ray, carotid ultrasound, echocardiogram with bubble study, head CT, brain MRI and MRA. DISCHARGE INSTRUCTIONS: 1. Please make hospital follow-ups as instructed above. 2. Please take the newly prescribed medications and discussed them with your primary care doctor. ITEMS TO FOLLOWUP ON ON OUTPATIENT: 1. Please ensure the patient does not need a new referral to Dr. Arango, translator deaf, for consideration for a loop recorder or some other similar device. 2. Please ensure that neurology or someone is monitoring her small cerebral aneurysm. 3. I believe the diagnosis of diastolic heart failure is new. Please take this into consideration as you manage her other long-term conditions. 4. Consider a referral for outpatient O/T if indicated at the time of your hospital follow-up. TIME SPENT ON DISCHARGE: Greater than 32 minutes. Vital Signs/I&Os Vital Signs Date Time Temp Pulse Resp B/P (MAP) Pulse Ox O2 Delivery O2 Flow Rate FiO2 01/23/20 09:06 74 140/69 01/23/20 07:59 96.8 16 92 Room Air I&O- Last 24 Hours up to 6 AM 01/23/20 06:00 Intake Total 1140 ml Output Total 0 ml Balance 1140 ml Laboratory Data Labs 24H Laboratory Tests 2 01/23/20 05:06: Nucleated Red Blood Cells % (auto) 0.0, Anion Gap 7L, Glomerular Filtration Rate > 60.0, Calcium Level 8.7L CBC/BMP Laboratory Tests 01/23/20 05:06 Discharge Medications Scheduled Aspirin (Aspirin EC) 81 Mg Tabec, 81 MG PO DAILY, (Reported) Clopidogrel Bisulfate (Clopidogrel) 75 Mg Tablet, 75 MG PO DAILY Diltiazem HCl (Dilt-Xr) 120 Mg Cap, 120 MG PO DAILY, (Reported) Ezetimibe (Ezetimibe) 10 Mg Tablet, 10 MG PO DAILY Ibandronate Sodium (Boniva) 150 Mg Tablet, 150 MG PO QMONTH, (Reported) with full glass of water at least 30 mins before first food or drink of the day; remain in upright position for at least 30 mins Magnesium Oxide (Magnesium Oxide) 400 Mg Tablet, 200 MG PO DAILY, (Reported) Multivitamins (Thera M Plus Tablet) 1 Each Tablet, 1 TAB PO DAILY, (Reported) Venlafaxine HCl (Venlafaxine HCl ER) 37.5 Mg Capcr, 37.5 MG PO DAILY, (Reported) Vitamin E (Dl,Tocopheryl Acet) (Vitamin E) Unknown Strength Capsule, 1 CAP PO DAILY, (Reported) Allergies Coded Allergies: No Known Allergies (Unverified , 10/28/18) Sher Weston MD Jan 23, 2020 11:49
--- NOTE | 2020-01-23 18:33 | CR ---
DATE OF CONSULTATION: 01/22/2020 REASON FOR CONSULTATION: Right arm weakness. HISTORY OF PRESENT ILLNESS: Jacinto Bustillos is a 79-year-old woman who was at her baseline state of health until Friday morning, when she was returning from grocery store and suddenly noted sudden onset complete numbness and weakness of right arm. Her right arm was completely flaccid. She looked at her phone and it occurred at 13:42 in the afternoon. Knowing something was wrong, she immediately came to emergency department. CT scan of her head was unremarkable. When she came back from CT scan, her right arm significantly improved. She started regaining strength and sensations back to her right arm. She was able to lift her right arm. She quickly regained strength of her right arm. She had slight difficulty with coordination of right hand fingers. She had no trouble with her speech, right leg or walking. She did not even have pronator drift of right arm. She denied any headaches, head injuries, falls or loss of consciousness. Due to significant rapid improvement of her symptoms, she was not given thrombolytics. PAST MEDICAL HISTORY: 1. Dyslipidemia with intolerance to multiple statins. 2. Depression. 3. Retinal detachment. 4. Basal cell carcinoma. 5. Osteoporosis. 6. Tortuous coronary arteries on cardiac catheterization in 2008, which was unremarkable for coronary artery disease. 7. Possible atrial flutter or paroxysmal atrial tachycardia on Holter monitor, for which the patient was scheduled to have ablation by her delivery director, Dr. Amilcar Arango, but it could not be done due to focus being close to sinoatrial (SA) node. 8. Peripheral neuropathy. 9. Left knee osteomyelitis. 10. Severe lumbosacral spinal stenosis. 11. Right shoulder surgery. 12. Hysterectomy. 13. Appendectomy. 13. Debridement of left femur due to osteomyelitis. 14. Colonoscopy. 15. Right knee meniscus repair. SOCIAL HISTORY: She denies smoking, alcohol or illicit drugs. FAMILY HISTORY: Mother had history of diabetes, breast cancer, colon and uterine cancer. Father of dementia. REVIEW OF SYSTEMS: All systems were reviewed and were and found to be noncontributory except as mentioned in history of present illness. HOME MEDICATIONS: - aspirin 81 mg by mouth daily - diltiazem extended release 120 mg by mouth daily - Boniva 150 mg by mouth daily - magnesium oxide 400 mg by mouth daily - multivitamin - Effexor 37.5 mg by mouth daily - vitamin E ALLERGIES: None. PHYSICAL EXAMINATION: Blood pressure 165/67, 97% saturation on room air, pulse 60, respiratory rate 16, temperature 97.5. HEART: Regular rate and rhythm. LUNGS: Clear to auscultation. ABDOMEN: Soft, nontender, nondistended. No pedal edema. No musculoskeletal abnormalities. No rash. No signs of meningeal irritation. The patient is awake, alert, oriented, place, person and time. Normal speech comprehension and repetition. Extraocular muscles are intact. No facial weakness. Tongue and uvula are midline. 5/5 strength in all four extremities except right hand, where she has slowness of rapid movements of fingers. There is no pronator drift. Normal sensation throughout bilaterally. Gait is normal. Plantars are downgoing. No dysmetria. DIAGNOSTIC STUDIES: MRI scan of brain showed multiple small, acute ischemic strokes in left frontal and parietal head region. MRA brain showed 1-2 mm right middle cerebral artery aneurysm. Carotid ultrasound was unremarkable. Echocardiogram is pending. EKG revealed right bundle branch block with normal sinus rhythm, pulse 83. ASSESSMENT 1. Suspected embolic left middle cerebral artery distribution, small multiple ischemic strokes. 2. Incidental 1- 2 mm right middle cerebral artery aneurysm. 3. Concern for paroxysmal atrial flutter or fibrillation, for which the patient follows with hosiery mater, Dr. Amilcar Arango. PLAN: 1. I had detailed discussion about placement of loop recorder with the patient. She wants to discuss with her hosiery mater. We should get records of her cardiac history. Due to concern for atrial flutter in past, we should consider starting the patient on Eliquis 2.5 mg twice a day and in a week, it can be increased to full dose, 5 mg by mouth twice a day, especially if her kidney functions are within normal limits. 2. Currently, the patient is taking aspirin 81 mg by mouth daily and Plavix 75 mg by mouth daily, which was started in the emergency department. If we do start Eliquis, we can discontinue and continue aspirin 81 mg by mouth daily until she reaches therapeutic dose. We want to avoid any hemorrhagic conversion of her ischemic stroke. 3. Get records from her hosiery mater and primary care physician. 4. Zetia 10 grams by mouth daily, as patient has had muscle aches and pains due to multiple statins. Her LDL is 156 and total cholesterol is 228. 5. Physical and occupational therapy. 6. Echocardiogram and continue telemetry monitoring. 7. Follow with our office in 1-2 weeks after hospital discharge.
== END 2020-01-23 13:07 | disposition home or self-care (01) | DRG 65 ==
LOC: M ED 14:08 → M ED INP 14:09 → ENRESERV 19:11 → M PCU 20:44 → OBSVTOIN 01-22 16:14
PROVIDERS: ADMIT Neuromusculoskeletal Medicine & OMM; ATTEND Family Medicine
DX: I63.512 Cerebral infarction due to unspecified occlusion or stenosis of left middle cerebral artery (principal); I50.32 Chronic diastolic (congestive) heart failure; I48.92 Unspecified atrial flutter; E78.00 Pure hypercholesterolemia, unspecified; F32.9 Major depressive disorder, single episode, unspecified; I77.1 Stricture of artery; I67.1 Cerebral aneurysm, nonruptured; I48.0 Paroxysmal atrial fibrillation; M81.0 Age-related osteoporosis without current pathological fracture; R27.8 Other lack of coordination; G58.8 Other specified mononeuropathies; M48.061 Spinal stenosis, lumbar region without neurogenic claudication; M17.0 Bilateral primary osteoarthritis of knee; Z90.49 Acquired absence of other specified parts of digestive tract; Z79.82 Long term (current) use of aspirin; Z79.899 Other long term (current) drug therapy

== ENCOUNTER → 2020-05-05 | Outpatient (REF) | payer MEDICARE ==
[~2020-05-05] MED LIST changes: +CLOP75TA2 PO; +EZET10TA21 PO; +MAG-400T7 PO; +VITA-157 PO; +VITMTA PO
== END ==
LOC: M SFHCPLAZ 14:31
PROVIDERS: ATTEND Family Medicine
DX: E55.9 Vitamin D deficiency, unspecified (principal)

== ENCOUNTER → 2020-09-21 | Outpatient (CLI) | payer MEDICARE | LOC: M LABSMTC 10:15 | PROVIDERS: ATTEND Anesthesiology | DX: Z01.812 Encounter for preprocedural laboratory examination (principal); Z20.822 Contact with and (suspected) exposure to COVID-19 ==

== ENCOUNTER 2020-09-26 07:35 | Day surgery (SDC) | payer MEDICARE ==
[~2020-09-26] VITALS: Ht 172.7 cm; Wt 85.5 kg
[~2020-09-26 07:35] MED LIST changes: +ASPI-569 PO; -ASPI81TAEC PO; -VITA-157 PO; +VITAE40CA PO
[2020-09-26] MEDS ORDERED: NS 1,000 ML IV ONE (08:30)
[2020-09-26] MEDS ORDERED: propofoL 200 MG/20 ML VIAL As Ordered ONE ×2 (08:43→09:11)
[2020-09-26] MEDS ORDERED: LIDOCAINE 2% 100MG/5ML SDV (FOR ANES.) As Ordered ONE (08:43)
--- NOTE | 2020-09-26 09:19 | ROOR ---
Patient Name: Jacinto Bustillos Procedure Date: 09/26/2020 8:54 AM Date of : 1940 Age: 80 Room: [facility] Gender: Female Note Status: Finalized Procedure: Colonoscopy Indications: Hematochezia Providers: Chaitanya ESTEVES MD Referring MD: Amelia Martínez MD Requesting Provider: Medicines: Monitored Anesthesia Care Complications: No immediate complications. Procedure: Pre-Anesthesia Assessment: - The heart rate, respiratory rate, oxygen saturations, blood pressure, adequacy of pulmonary ventilation, and response to care were monitored throughout the procedure. The Colonoscope was introduced through the anus and advanced to 5 cm into the ileum. The colonoscopy was performed without difficulty. The patient tolerated the procedure well. The quality of the bowel preparation was good. Findings: The perianal and digital rectal examinations were normal. Small Internal Hemorrhoids. The exam was otherwise without abnormality on direct and retroflexion views. Impression: - Small Internal Hemorrhoids. - The examination was otherwise normal on direct and retroflexion views. - No specimens collected. Recommendation: - Resume Plavix (clopidogrel) at prior dose today. - Use fiber, for example Citrucel, Fibercon, Konsyl or Metamucil. Procedure Code(s): --- Professional --- 60944, Colonoscopy, flexible; diagnostic, including collection of specimen(s) by brushing or washing, when performed (separate procedure) Diagnosis Code(s): --- Professional --- K92.1, Melena (includes Hematochezia) CPT copyright 2019 [employer]. All rights reserved. The codes documented in this report are preliminary and upon mixer and blender review may be revised to meet current compliance requirements. Chaitanya Esteves MD Chaitanya ESTEVES MD 09/26/2020 9:20:02 AM Electronically signed by Chaitanya ESTEVES MD Number of Addenda: 0 Note Initiated On: 09/26/2020 8:54 AM Estimated Blood Loss: Estimated blood loss: none.
[2020-09-26 09:45] VITALS: BP 142/89
== END 2020-09-26 09:52 | disposition home or self-care (01) ==
LOC: M OPP 07:35
PROVIDERS: ATTEND Internal Medicine Gastroenterology
DX: K92.1 Melena (principal); K64.8 Other hemorrhoids; K21.9 Gastro-esophageal reflux disease without esophagitis; Z79.899 Other long term (current) drug therapy; Z79.82 Long term (current) use of aspirin; Z88.8 Allergy status to other drugs, medicaments and biological substances; Z86.73 Personal history of transient ischemic attack (TIA), and cerebral infarction without residual deficits

== ENCOUNTER → 2021-01-30 | Outpatient (CLI) | payer MEDICARE ==
--- NOTE | 2021-01-30 14:46 | REPMRS ---
Patient History The patient states she has not had a clinical breast exam in over a year. Family history of breast cancer at age 82, colorectal cancer at age 76, ovarian cancer at age 76, and endometrial cancer at age 76 in mother. Patient states no breast complaints today. Patient has signed MRS History Sheet. Digital Woman Screen Mammo: January 30, 2021 - Exam #: [id number] Bilateral CC and MLO view(s) were taken. Technologist: Lissa Gaxiola, Technologist Prior study comparison: June 10, 2018, bilateral digital woman screen mammo performed at [facility], [place]. 2017, bilateral digital mammo screening bilat, performed at [facility]. FINDINGS: There are scattered fibroglandular densities. Screening. Digital screening (2D) mammography was performed bilaterally in the CC and MLO projections. Additionally, breast tomosynthesis (3D mammography) was performed bilaterally in the CC and MLO projections. Todays exam was compared to the prior exam/exams. By history, the patient has no complaints of a palpable breast abnormality or other significant breast complaints. The breasts are unchanged in size and shape. There are no temitope-soft tissue densities or spiculated masses. There is no internal architectural distortion.Once again, stable benign appearing calcifications are seen. There are no suspicious temitope-calcific clusters. Skin thickening or nipple retraction is not present. IMPRESSION: BI-RADS Category 2- Benign Findings. There is no evidence of malignant alteration of the breasts. Followup examination recommended in one year. The Volpara volumetric breast density category is B, there are scattered areas of fibroglandular densities. This mammogram was read with the assistance of [facility] [employer],an FDA approved computer aided detection system for mammography. The lifetime Tyrer-Cuzick score is 3.8 % Negative x-ray reports should not delay surgical consultation if a dominant or clinically suspicious mass is present. Not all breast cancers can be identified by mammography. Therefore, we recommend that you continue to perform regular breast self-examination and physical examination and then promptly contact your physician of any concerns or changes. Adenosis and dense breasts may obscure an underlying neoplasm. Assessment: BI-RADS/ACR category 2 mammogram. Benign Findings. Recommendation Routine screening mammogram of both breasts in 1 year. Electronically Signed By: Apollo Johnson DO 01/30/21 0682
--- NOTE | 2021-01-30 14:52 | DEXAMM ---
INDICATION: M81.0 AGE RELATED OSTEOPOROSIS. COMPARISON: None. TECHNIQUE: Bone density was measured using dual-energy x-ray absorptiometry (DEXA). FINDINGS: AP SPINE L1-L4 BMD 0.804 g/cm2 Young Adult T-Score -3.1 Age Matched Z-Score -1.3. LT FEMUR, TOTAL BMD 0.577 g/cm2 Young Adult T-Score -3.4 Age Matched Z-Score -1.5. LT NECK BMD 0.584 g/cm2 Young Adult T-Score -3.3 Age Matched Z-Score -1.2. RT FEMUR, TOTAL BMD 0.602 g/cm2 Young Adult T-Score -3.2 Age Matched Z-Score -1.3. RT NECK BMD 0.621 g/cm2 Young Adult T-Score -3.0 Age Matched Z-Score -0.9. IMPRESSION: There is osteoporosis of the spine. There is osteoporosis of the left hip. There is osteoporosis of the right hip. FOLLOW-UP: Recommendation for the next bone density exam: 2 years. <Electronically signed by Trung Hankins > 01/30/21 0416
== END ==
LOC: M WHC 13:36
PROVIDERS: ATTEND Family Medicine
DX: Z12.31 Encounter for screening mammogram for malignant neoplasm of breast (principal); M81.0 Age-related osteoporosis without current pathological fracture

== ENCOUNTER → 2021-02-15 | Outpatient (CLI) | payer MEDICARE ==
[2021-02-15 13:30] LABS: BLOOD UREA NITROGEN 11 MG/DL (7-18); CALCIUM LEVEL 9.6 MG/DL (8.8-10.2); CARBON DIOXIDE LEVEL 30 MEQ/L (21-32); CHLORIDE LEVEL 107 MEQ/L (98-107); CREATININE FOR GFR 0.82 MG/DL (0.55-1.30); GLOMERULAR FILTRATION RATE > 60.0 (>39); GLUCOSE, FASTING 106 MG/DL (70-100); MAGNESIUM LEVEL 2.9 MG/DL (1.8-2.4); PHOSPHORUS LEVEL 3.4 MG/DL (2.5-4.9); POTASSIUM SERUM 4.9 MEQ/L (3.5-5.1); SODIUM LEVEL 141 MEQ/L (136-145)
[2021-02-15 13:39] LABS: TOTAL 25(OH) VITAMIN D 52.1 NG/ML (30.0-100.0)
== END ==
LOC: M PLALAB 10:54
PROVIDERS: ATTEND Family Medicine
DX: M81.0 Age-related osteoporosis without current pathological fracture (principal)

== ENCOUNTER 2021-04-27 08:53 | Emergency (ER) | payer MEDICARE ==
[~2021-04-27] VITALS: Ht 172.7 cm; Wt 86.4 kg
[2021-04-27] MEDS ORDERED: ONDANSETRON 4MG/2ML VIAL IV ONE (09:40)
[2021-04-27] MEDS ORDERED: MORPHINE 2 MG/ML 1ML VIAL (J2270) IV ONE (09:40)
[2021-04-27 09:47] LABS: BASO # 0.1 10^3/uL (0.0-0.2); BASO % 0.8 % (0.0-1.0); EOS # 0.2 10^3/uL (0.0-0.5); EOS % 1.7 % (0.0-3.0); HEMATOCRIT 43.1 % (36.0-47.0); HEMOGLOBIN 14.2 g/dl (12.0-15.5); LYMPH # 2.6 10^3/uL (1.5-5.0); LYMPH % 24.7 % (24.0-44.0); MEAN CORPUSCULAR HEMOGLOBIN 29.6 pg (27.0-33.0); MEAN CORPUSCULAR HGB CONC 32.9 g/dl (32.0-36.5); MEAN CORPUSCULAR VOLUME 89.8 fl (80.0-96.0); MONO # 0.9 10^3/uL (0.0-0.8); MONO % 8.5 % (2.0-8.0); NEUTROPHILS # 6.7 10^3/uL (1.5-8.5); NEUTROPHILS % 64.1 % (36.0-66.0); PLATELET COUNT, AUTOMATED 247 10^3/uL (150-450); WHITE BLOOD COUNT 10.5 10^3/uL (4.0-10.0)
--- NOTE | 2021-04-27 09:53 | REP ---
INDICATION: CHEST PAIN. COMPARISON: Comparison chest x-ray January 21, 2020. TECHNIQUE: Portable upright AP chest radiograph. FINDINGS: The lungs are well inflated and clear. The pleural angles are sharp. Aorta is somewhat tortuous. EKG monitoring electrodes are seen. Pulmonary vasculature is not increased. No infiltrate is seen. The heart is mildly enlarged unchanged. The IMPRESSION: Mildly prominent heart. Otherwise no acute disease. <Electronically signed by Charlie Lopez > 04/27/21 0922
[2021-04-27 10:16] LABS: ALBUMIN 3.3 GM/DL (3.2-5.2); ALT/SGPT 19 U/L (12-78); BILIRUBIN,DIRECT < 0.1 MG/DL (0.0-0.2); BILIRUBIN,TOTAL 0.3 MG/DL (0.2-1.0); BLOOD UREA NITROGEN 19 MG/DL (7-18); CALCIUM LEVEL 10.5 MG/DL (8.8-10.2); CARBON DIOXIDE LEVEL 23 MEQ/L (21-32); CHLORIDE LEVEL 109 MEQ/L (98-107); CK-MB VALUE MASS 2.1 NG/ML (<3.6); CPK CREATINE PHOSPHOKINASE 143 U/L (26-192); GLOMERULAR FILTRATION RATE 51.1 (>39); GLUCOSE, FASTING 113 MG/DL (70-100); LIPASE 220 U/L (73-393); MB/CK RELATIVE INDEX 1.47 (< OR =4); POTASSIUM SERUM 4.7 MEQ/L (3.5-5.1); SODIUM LEVEL 141 MEQ/L (136-145); TOTAL PROTEIN 6.9 GM/DL (6.4-8.2); TROPONIN I < 0.02 NG/ML (< 0.10)
[2021-04-27] MEDS ORDERED: ISOVUE-370 76% 100ML VIAL As Ordered ONE (10:39)
--- NOTE | 2021-04-27 11:13 | REP ---
INDICATION: chest pain r/o PE. COMPARISON: Comparison CT angio November 03, 2018. TECHNIQUE: Contrast dose: 75 ML of Isovue [address] technique: Helical scanning is acquired and overlapping 1.5 mm and contiguous 3 mm axial images are reformatted. In addition, maximum intensity projection and multiplanar re-formation images are generated in sagittal and coronal imaging projections. FINDINGS: There is good opacification in the pulmonary arterial tree. There is no evidence of vessel cut off or filling defect to suggest pulmonary embolus. Homogeneous opacity is seen in the thoracic aorta. There is no evidence of aneurysm or dissection. There is no evidence of pleural or pericardial effusion. No hilar or mediastinal mass or adenopathy is observed. Lung window settings demonstrate no evidence of infiltrate or pulmonary mass lesion. There is minimal linear fibrosis in the left base. No significant pulmonary nodule is seen. In the upper abdomen, normal adrenal glands are observed. There are granulomatous calcifications in the spleen. There is mottled area of increased density in the dependent portion the gallbladder consistent with gallstones. IMPRESSION: No CT evidence of pulmonary embolus. Possible cholelithiasis. Granulomatous calcifications in the spleen. Mild linear fibrosis left base. <Electronically signed by Charlie Lopez > 04/27/21 [id number]
--- NOTE | 2021-04-27 12:10 | REP ---
INDICATION: RUQ pain. FINDINGS: Multiple ultrasonographic images of the liver show the hepatic parenchymal echo texture to appear unremarkable. There are no focal masses. There is no intrahepatic ductal dilatation. The common bile duct measures 4 mm in its greatest transverse dimension. Multiple ultrasonographic images of the gallbladder show multiple echogenic foci within the gallbladder lumen which casts acoustic shadows. There is mild gallbladder wall thickening. There is no pericholecystic edema. Images of the pancreatic region show no gross abnormality. IMPRESSION: Cholelithiasis and mild gallbladder wall thickening. Accredited by the [employer] in General Ultrasound. <Electronically signed by Apollo Johnson > 04/27/21 [id number]
[2021-04-27] MEDS ORDERED: HYDR-3713 PO (13:11)
[2021-04-27] MEDS ORDERED: ONDA4TAB6 PO (13:11)
[2021-04-27 13:34] LABS: BASO # 0.1 10^3/uL (0.0-0.2); BASO % 0.5 % (0.0-1.0); EOS # 0.1 10^3/uL (0.0-0.5); EOS % 0.8 % (0.0-3.0); LYMPH # 2.3 10^3/uL (1.5-5.0); LYMPH % 20.1 % (24.0-44.0); MONO # 0.8 10^3/uL (0.0-0.8); MONO % 6.7 % (2.0-8.0); NEUTROPHILS # 8.1 10^3/uL (1.5-8.5); NEUTROPHILS % 71.6 % (36.0-66.0); WHITE BLOOD COUNT 11.3 10^3/uL (4.0-10.0)
[2021-04-27 14:58] VITALS: BP_DIAS 83
[2021-04-27 15:01] VITALS: BP_SYST 176
--- NOTE | 2021-04-27 20:00 | ECGEPIP ---
[facility] - ED Test Date: 2021-04-27 Pat Name: NEDRA QUINN Department: Room: - Gender: Female Chief Growth Officer: jaleesa : 1940 Requested By: Branden Child Order Number: [id number] Reading MD: Mariposa Fuller Measurements Intervals Campbell Rate: 74 P: 37 UT: 232 QRS: -32 QRSD: 134 T: 2 QT: 416 QTc: 461 Interpretive Statements Sinus rhythm with 1st degree AV block Left axis deviation Right bundle branch block Minimal voltage criteria for LVH, may be normal variant ( R in aVL ) NSTTW abnormalities possible septal infacrt decreased rate 01/21/20 Electronically Signed on 04-27-2021 20:00:25 EDT by Mariposa Fuller
== END 2021-04-27 15:02 | disposition home or self-care (01) ==
LOC: M ED 08:53
DX: K80.20 Calculus of gallbladder without cholecystitis without obstruction (principal); K80.50 Calculus of bile duct without cholangitis or cholecystitis without obstruction; D73.89 Other diseases of spleen; R94.31 Abnormal electrocardiogram [ECG] [EKG]; E78.5 Hyperlipidemia, unspecified; M48.00 Spinal stenosis, site unspecified; F32.9 Major depressive disorder, single episode, unspecified; Z79.82 Long term (current) use of aspirin; Z79.899 Other long term (current) drug therapy
CPT/HCPCS: 71045; 71275; 76705; 80048; 80076; 82550; 82553; 83690; 84484; 85025; 93005; 93041; 94760; 96374; 96375; 99284; J2270; J2405; Q9967

== ENCOUNTER → 2021-08-28 | Outpatient (CLI) | payer MEDICARE ==
[~2021-08-28] MED LIST changes: +D3 M1CAP2 PO; +DILT1CAP2 PO; +FURO20TA2; +FURO20TA2 PO; +GNP250TA9 PO; +HYDR-4571; +HYDR-4571 PO; +KETO2CR EXT; +METO1TAB87 PO; +ONDA4TAB6 PO; +PLAV1TAB2 PO; +POTA-149 PO; +VENL75CA47 PO
[2021-08-28 15:32] LABS: ALBUMIN 3.7 GM/DL (3.2-5.2); ALT/SGPT 42 U/L (12-78); BILIRUBIN,TOTAL 0.4 MG/DL (0.2-1.0); BLOOD UREA NITROGEN 16 MG/DL (7-18); CALCIUM LEVEL 9.3 MG/DL (8.8-10.2); CARBON DIOXIDE LEVEL 28 MEQ/L (21-32); CHLORIDE LEVEL 109 MEQ/L (98-107); CREATININE FOR GFR 0.83 MG/DL (0.55-1.30); GLOMERULAR FILTRATION RATE > 60.0 (>39); GLUCOSE, FASTING 106 MG/DL (70-100); POTASSIUM SERUM 4.9 MEQ/L (3.5-5.1); SODIUM LEVEL 142 MEQ/L (136-145); TOTAL PROTEIN 7.6 GM/DL (6.4-8.2)
== END ==
LOC: M PLALAB 11:53
PROVIDERS: ATTEND Family Medicine
DX: K85.10 Biliary acute pancreatitis without necrosis or infection (principal); K80.50 Calculus of bile duct without cholangitis or cholecystitis without obstruction; R74.8 Abnormal levels of other serum enzymes

== ENCOUNTER → 2021-09-13 | Outpatient (CLI) | payer MEDICARE | LOC: M LABSMTC 10:58 | PROVIDERS: ATTEND Anesthesiology | DX: Z01.818 Encounter for other preprocedural examination (principal) ==

== ENCOUNTER → 2021-10-09 | Outpatient (CLI) | payer MEDICARE | LOC: M RAD 15:01 | PROVIDERS: ATTEND Internal Medicine Gastroenterology | DX: K85.10 Biliary acute pancreatitis without necrosis or infection (principal); K83.1 Obstruction of bile duct; K85.20 Alcohol induced acute pancreatitis without necrosis or infection ==

== ENCOUNTER → 2021-10-13 | Outpatient (CLI) | payer MEDICARE ==
[~2021-10-13] MED LIST changes: +POTA10CA32 PO; +VITA1CAP25 PO; +VITA500054 PO
== END ==
LOC: M LABSMTC 10:11
PROVIDERS: ATTEND Anesthesiology
DX: Z01.818 Encounter for other preprocedural examination (principal); Z11.52 Encounter for screening for COVID-19

== ENCOUNTER 2021-10-18 11:49 | Day surgery (SDC) | payer MEDICARE ==
[~2021-10-18] VITALS: Ht 172.7 cm; Wt 84.1 kg
[~2021-10-18 11:49] MED LIST changes: +LR 1,000 ML IV ONE
[2021-10-18] MEDS ORDERED: ISOVUE-300 61% 50ML VIAL As Ordered ONE (13:21)
[2021-10-18] MEDS ORDERED: SUGAMMADEX SODIUM 500 MG/5 ML VIAL (BRIDION) As Ordered ONE (16:09)
[2021-10-18] MEDS ORDERED: propofoL 200 MG/20 ML VIAL As Ordered ONE (16:09)
[2021-10-18] MEDS ORDERED: dexameTHASONE 4 MG/ML 1ML VIAL (J1100 PER 1MG) As Ordered ONE (16:09)
[2021-10-18] MEDS ORDERED: fentaNYL 100 MCG/2 ML INJECTION As Ordered ONE (16:09)
[2021-10-18] MEDS ORDERED: LIDOCAINE 2% 100MG/5ML SDV (FOR ANES.) As Ordered ONE (16:09)
[2021-10-18] MEDS ORDERED: ONDANSETRON 4MG/2ML VIAL As Ordered ONE (16:09)
[2021-10-18] MEDS ORDERED: MIDAZOLAM INJ 2MG/2ML VIAL (J2250 PER 1MG) As Ordered ONE (16:09)
[2021-10-18] MEDS ORDERED: METOCLOPRAMIDE INJ 10MG/2ML VIAL (J2765 PER 1) As Ordered ONE (16:09)
[2021-10-18] MEDS ORDERED: ROCURONIUM BROMIDE 50 MG/5 ML VIAL As Ordered ONE (16:09)
[2021-10-18] MEDS ORDERED: ETOMIDATE INJ 20MG/10ML VIAL As Ordered ONE (16:09)
[2021-10-18] MEDS ORDERED: ACETAMINOPHEN 1000MG 100ML IV BTL (OFIRMEV) (J0131 PER 10MG) As Ordered ONE (16:40)
[2021-10-18] MEDS ORDERED: ePHEDrine SULFATE 25 MG/5 ML(5MG/ML) SYRINGE As Ordered ONE (17:06)
[2021-10-18] MEDS ORDERED: LACRILUBE (AKWA TEARS) OPHTH OINT 3.5 GM As Ordered ONE (17:53)
[2021-10-18] MEDS ORDERED: ONDANSETRON 4MG/2ML VIAL IV PRN (18:15)
[2021-10-18] MEDS ORDERED: fentaNYL 100 MCG/2 ML INJECTION IV PRN (18:15)
[2021-10-18] MEDS ORDERED: oxyCODONE 5MG TAB PO PRN (18:15)
[2021-10-18] MEDS ORDERED: MEPERIDINE INJ 25 MG/ML VIAL (J2175) IV PRN (18:15)
[2021-10-18] MEDS ORDERED: LR 1,000 ML IV SCH (18:15)
[2021-10-18 19:13] VITALS: BP 115/57
== END 2021-10-18 19:18 | disposition home or self-care (01) ==
LOC: M SDC 11:49
PROVIDERS: ATTEND Internal Medicine Gastroenterology
DX: K80.51 Calculus of bile duct without cholangitis or cholecystitis with obstruction (principal); Z96.89 Presence of other specified functional implants; I10 Essential (primary) hypertension; M54.9 Dorsalgia, unspecified; R12 Heartburn; M85.80 Other specified disorders of bone density and structure, unspecified site; M81.0 Age-related osteoporosis without current pathological fracture; F32.9 Major depressive disorder, single episode, unspecified; I69.331 Monoplegia of upper limb following cerebral infarction affecting right dominant side; R32 Unspecified urinary incontinence; R06.83 Snoring; Z79.899 Other long term (current) drug therapy; Z79.02 Long term (current) use of antithrombotics/antiplatelets
CPT/HCPCS: 43264; 43276; 74330; C1876; J0131; J1100; J2250; J2405; J2765; J3010; Q9967

== ENCOUNTER → 2021-12-27 | Outpatient (CLI) | payer MEDICARE ==
[~2021-12-27] MED LIST changes: -LR 1,000 ML IV ONE
[2021-12-27 16:01] LABS: BLOOD UREA NITROGEN 12 MG/DL (7-18); CARBON DIOXIDE LEVEL 27 MEQ/L (21-32); CHLORIDE LEVEL 109 MEQ/L (98-107); CREATININE FOR GFR 0.94 MG/DL (0.55-1.30); GLOMERULAR FILTRATION RATE > 60.0 (>39); GLUCOSE, FASTING 97 MG/DL (70-100); MAGNESIUM LEVEL 2.4 MG/DL (1.8-2.4); PHOSPHORUS LEVEL 3.7 MG/DL (2.5-4.9); POTASSIUM SERUM 4.8 MEQ/L (3.5-5.1); SODIUM LEVEL 140 MEQ/L (136-145)
[2021-12-27 16:04] LABS: TOTAL 25(OH) VITAMIN D 39.7 NG/ML (30.0-100.0)
== END ==
LOC: M PLALAB 10:37
PROVIDERS: ATTEND Family Medicine
DX: M81.0 Age-related osteoporosis without current pathological fracture (principal); E55.9 Vitamin D deficiency, unspecified

== ENCOUNTER → 2022-08-23 | Outpatient (CLI) | payer MEDICARE ==
[~2022-08-23] MED LIST changes: +CLOP75TA99 PO; -PLAV1TAB2 PO; -POTA10CA32 PO; +POTA10CA33 PO
== END ==
LOC: M RAD 14:39
PROVIDERS: ATTEND Internal Medicine Gastroenterology
DX: K80.50 Calculus of bile duct without cholangitis or cholecystitis without obstruction (principal)

== ENCOUNTER 2023-06-18 08:40 | Day surgery (SDC) | payer MEDICARE ==
[~2023-06-18] VITALS: Ht 172.7 cm; Wt 82.1 kg
[~2023-06-18 08:40] MED LIST changes: +DILT120C42 PO; -DILT1CAP2 PO; +DIPH2.5T15 PO; +NS 1,000 ML IV ONE; -POTA10CA33 PO; +POTA10CA60 PO
[2023-06-18] MEDS ORDERED: propofoL 200 MG/20 ML VIAL As Ordered ONE ×2 (08:49→08:50)
[2023-06-18] MEDS ORDERED: LIDOCAINE 2% 100MG/5ML SDV (FOR ANES.) As Ordered ONE (08:49)
[2023-06-18] MEDS ORDERED: fentaNYL 100 MCG/2 ML INJECTION As Ordered ONE (10:09)
[2023-06-18 11:25] VITALS: BP 147/74; TEMP 97; O2SAT 98
== END 2023-06-18 11:35 | disposition home or self-care (01) ==
LOC: M OPP 08:40
PROVIDERS: ATTEND Surgery
DX: K51.90 Ulcerative colitis, unspecified, without complications (principal); K57.30 Diverticulosis of large intestine without perforation or abscess without bleeding; K29.70 Gastritis, unspecified, without bleeding; I10 Essential (primary) hypertension; E78.00 Pure hypercholesterolemia, unspecified; Z85.828 Personal history of other malignant neoplasm of skin; M48.061 Spinal stenosis, lumbar region without neurogenic claudication; M85.88 Other specified disorders of bone density and structure, other site; Z79.899 Other long term (current) drug therapy; Z90.710 Acquired absence of both cervix and uterus; Z88.8 Allergy status to other drugs, medicaments and biological substances
CPT/HCPCS: 43239; 45380; 88305; J3010

== ENCOUNTER 2023-10-26 23:15 | Emergency (ER) | payer MEDICARE ==
[~2023-10-26] VITALS: Ht 172.7 cm; Wt 88.3 kg
[~2023-10-26 23:15] MED LIST changes: -EFFE37.5 PO; +EFFE37.52 PO; -NS 1,000 ML IV ONE
[2023-10-26] MEDS ORDERED: BUSP10TA PO (23:30)
[2023-10-27] MEDS: ONDANSETRON 4MG 2ML VIAL IV ONE (00:02)
[2023-10-27] MEDS: MORPHINE 2 MG/ML 1ML VIAL IV PRN (00:02)
[2023-10-27 00:27] LABS: LIPASE 38 U/L (12-53)
[2023-10-27 00:29] LABS: ALBUMIN 3.5 G/DL (3.2-5.2); ALKALINE PHOSPHATASE 102 U/L (46-116); ALT/SGPT < 9 U/L (7.0-40); AST/SGOT 24 U/L (<34); BILIRUBIN,DIRECT < 0.1 MG/DL (<0.4); BILIRUBIN,TOTAL 0.3 MG/DL (0.3-1.2); BLOOD UREA NITROGEN 17 MG/DL (9-23); CALCIUM LEVEL 8.9 MG/DL (8.3-10.6); CARBON DIOXIDE LEVEL 27 MMOL/L (20-31); CHLORIDE LEVEL 106 MMOL/L (98-107); CREATININE FOR GFR 1.02 MG/DL (0.55-1.30); GLOMERULAR FILTRATION RATE 55.4 (>32); GLUCOSE, FASTING 106 MG/DL (74-106); POTASSIUM SERUM 4.3 MMOL/L (3.5-5.1); SODIUM LEVEL 141 MMOL/L (136-145); TOTAL PROTEIN 6.6 G/DL (5.7-8.2)
[2023-10-27 00:42] LABS: BASO % 0.5 % (0.0-1.0); EOS % 1.8 % (0.0-3.0); HEMATOCRIT 42.2 % (36.0-47.0); HEMOGLOBIN 13.9 g/dl (12.0-15.5); LYMPH % 20.9 % (24.0-44.0); MEAN CORPUSCULAR HEMOGLOBIN 29.7 pg (27.0-33.0); MEAN CORPUSCULAR HGB CONC 32.9 g/dl (32.0-36.5); MEAN CORPUSCULAR VOLUME 90.2 fl (80.0-96.0); MONO % 8.5 % (2.0-8.0); PLATELET COUNT, AUTOMATED 259 10^3/uL (150-450); RED BLOOD COUNT 4.68 10^6/uL (4.00-5.40); WHITE BLOOD COUNT 9.9 10^3/uL (4.0-10.0)
[2023-10-27 00:43] LABS: BASO # 0.1 10^3/uL (0.0-0.2); EOS # 0.2 10^3/uL (0.0-0.5); LYMPH # 2.1 10^3/uL (1.5-5.0); MONO # 0.8 10^3/uL (0.0-0.8); NEUTROPHILS # 6.8 10^3/uL (1.5-8.5)
[2023-10-27] MEDS: GASTROGRAFIN SOLUTION 30ML PO SCH (00:52)
[2023-10-27] MEDS ORDERED: ISOVUE-370 76% 100ML VIAL As Ordered ONE (02:07)
[2023-10-27] MEDS: KETOROLAC 30 MG/ML 1ML VIAL IV ONE (03:51)
[2023-10-27 05:16] VITALS: BP 134/74; TEMP 98.6; O2SAT 93
[2023-10-27] MEDS ORDERED: HYDR-4571 PO (05:36)
[2023-10-27] MEDS ORDERED: FLOM0.4C39 PO (05:36)
[2023-10-27] MEDS: NORCO 5/325MG TABLET (HOME DOSE PACK) PO ONE (05:52)
== END 2023-10-27 06:02 | disposition home or self-care (01) ==
LOC: M ED 23:15
DX: I71.40 Abdominal aortic aneurysm, without rupture, unspecified (principal); N20.1 Calculus of ureter; I10 Essential (primary) hypertension; K21.9 Gastro-esophageal reflux disease without esophagitis; F32.A Depression, unspecified; K80.20 Calculus of gallbladder without cholecystitis without obstruction; Z88.8 Allergy status to other drugs, medicaments and biological substances; Z79.899 Other long term (current) drug therapy
CPT/HCPCS: 74177; 80048; 80076; 81001; 83690; 85025; 87086; 93041; 94760; 96374; 96375; 99285; J1885; J2405; Q9963; Q9967

== ENCOUNTER 2024-07-21 10:52 | Inpatient (IN) | payer MEDICARE ==
[~2024-07-21] VITALS: Ht 172.7 cm; Wt 83.3 kg
[~2024-07-21 10:52] MED LIST changes: +BUSP10TA PO; +DIPH1TAB81 PO; -DIPH2.5T15 PO; +FLOM0.4C39 PO; +ONDA-282 PO; -ONDA4TAB6 PO; -POTA10CA60 PO; +POTA10CA70 PO
[2024-07-21] MEDS ORDERED: VENL150C43 PO (11:40)
[2024-07-21 12:03] LABS: VENOUS HCO3 24.1 MMOL/L (23.0-27.0); VENOUS PARTIAL PRESSURE CO2 34.2 mmHg (38.0-50.0); VENOUS PARTIAL PRESSURE O2 51.2 mmHg (30.0-50.0); VENOUS PH 7.466 UNITS (7.330-7.430); VENOUS STANDARD HCO3 25.2 MMOL/L; VENOUS TOTAL CO2 25.2 MMOL/L (24.0-28.0)
[2024-07-21 12:11] LABS: BASO % 0.4 % (0.0-1.0); EOS # 0.2 10^3/uL (0.0-0.5); EOS % 2.8 % (0.0-3.0); HEMATOCRIT 45.1 % (36.0-47.0); HEMOGLOBIN 14.8 g/dl (12.0-15.5); LYMPH # 1.1 10^3/uL (1.5-5.0); LYMPH % 16.8 % (24.0-44.0); MEAN CORPUSCULAR HEMOGLOBIN 29.4 pg (27.0-33.0); MEAN CORPUSCULAR HGB CONC 32.8 g/dl (32.0-36.5); MEAN CORPUSCULAR VOLUME 89.7 fl (80.0-96.0); MONO # 0.9 10^3/uL (0.0-0.8); MONO % 13.3 % (2.0-8.0); NEUTROPHILS # 4.4 10^3/uL (1.5-8.5); NEUTROPHILS % 65.5 % (36.0-66.0); PLATELET COUNT, AUTOMATED 229 10^3/uL (150-450); RED BLOOD COUNT 5.03 10^6/uL (4.00-5.40); WHITE BLOOD COUNT 6.7 10^3/uL (4.0-10.0)
[2024-07-21 12:37] LABS: ALKALINE PHOSPHATASE 148 U/L (35-104); ALT/SGPT 17 U/L (7.0-40); AST/SGOT 49 U/L (<34); BILIRUBIN,DIRECT < 0.1 MG/DL (<0.4); BILIRUBIN,TOTAL 0.4 MG/DL (0.3-1.2); BLOOD UREA NITROGEN 14 MG/DL (9-23); CALCIUM LEVEL 8.3 MG/DL (8.3-10.6); CARBON DIOXIDE LEVEL 25 MMOL/L (20-31); CHLORIDE LEVEL 105 MMOL/L (98-107); GLOMERULAR FILTRATION RATE > 60.0 (>32); GLUCOSE, FASTING 109 MG/DL (74-106); POTASSIUM SERUM 4.5 MMOL/L (3.5-5.1); SODIUM LEVEL 138 MMOL/L (136-145); TOTAL PROTEIN 6.5 G/DL (5.7-8.2)
[2024-07-21 13:24] LABS: KETONE, URINE AUTO RFX NEGATIVE (NEGATIVE); LEUKOCYTE ESTERASE UR AUTO RFX NEGATIVE (NEGATIVE); MUCUS, URINE RFX SMALL (NEGATIVE); NITRITE, URINE AUTO RFX NEGATIVE (NEGATIVE)
[2024-07-21] MEDS: OSELTAMIVIR PHOSPHATE 75 MG CAP (TAMIFLU) PO ONE (13:35)
[2024-07-21] MEDS ORDERED: HOME MED LIST COMPLETE! XX SCH (13:45)
[2024-07-21] MEDS ORDERED: METOPROLOL PO (13:51)
[2024-07-21] MEDS ORDERED: MED REC IN PROGRESS XX SCH (13:55)
[2024-07-21] MEDS: BENZONATATE 100MG CAPSULE PO PRN (15:07)
[2024-07-21] MEDS: VENLAFAXINE **XR** 75MG CAPSULE PO SCH (15:07)
[2024-07-21] MEDS: ENOXAPARIN 40MG/0.4ML SYRINGE (J1650 PER 10MG) SC SCH (15:07)
[2024-07-21] MEDS: LR 1,000 ML IV ONE (15:08)
[2024-07-21] MEDS: IPRATROPIUM 0.5MG/ALBUTEROL 2.5MG INH SOL UD 3ML (DUONEB) NEB SCH (15:10)
[2024-07-21 16:30] VITALS: BP 144/63; TEMP 97.5; O2SAT 94
[2024-07-21 20:00] VITALS: BP 145/65; TEMP 97.9; O2SAT 93
[2024-07-21] MEDS: OSELTAMIVIR PHOSPHATE 75 MG CAP (TAMIFLU) PO SCH (20:23)
[2024-07-22 04:00] VITALS: BP 113/59; TEMP 98.4; O2SAT 90
[2024-07-22] MEDS: TAMSULOSIN 0.4 MG CAP PO ONE (04:51)
[2024-07-22] MEDS: NYSTATIN 100,000 UNITS/GM TOPICAL PWD 15GM TOP PRN (04:51)
[2024-07-22 06:26] LABS: HEMATOCRIT 38.3 % (36.0-47.0); MEAN CORPUSCULAR HEMOGLOBIN 29.5 pg (27.0-33.0); MEAN CORPUSCULAR HGB CONC 32.4 g/dl (32.0-36.5); PLATELET COUNT, AUTOMATED 183 10^3/uL (150-450); RED BLOOD COUNT 4.21 10^6/uL (4.00-5.40); WHITE BLOOD COUNT 6.2 10^3/uL (4.0-10.0)
[2024-07-22 06:27] LABS: BLOOD UREA NITROGEN 11 MG/DL (9-23); CALCIUM LEVEL 7.7 MG/DL (8.3-10.6); CARBON DIOXIDE LEVEL 26 MMOL/L (20-31); CHLORIDE LEVEL 102 MMOL/L (98-107); CREATININE FOR GFR 0.73 MG/DL (0.55-1.30); GLOMERULAR FILTRATION RATE > 60.0 (>32); GLUCOSE, FASTING 135 MG/DL (74-106); POTASSIUM SERUM 3.7 MMOL/L (3.5-5.1); SODIUM LEVEL 138 MMOL/L (136-145)
[2024-07-22 06:30] LABS: HEMOGLOBIN 12.4 g/dl (12.0-15.5)
[2024-07-22] MEDS ORDERED: VENTAER INH (08:45)
[2024-07-22] MEDS ORDERED: NYST10006 TOP (08:45)
[2024-07-22] MEDS ORDERED: BENZ-18 PO (08:45)
[2024-07-22] MEDS ORDERED: OSEL75CA2 PO (08:45)
[2024-07-22] MEDS: CLOPIDOGREL 75 MG TAB PO SCH (09:38)
[2024-07-22 12:00] VITALS: BP 148/69; TEMP 98.4; O2SAT 91
[2024-07-22 20:00] VITALS: BP_SYST 132; BP_SYST 146; BP_DIAS 63; BP_DIAS 70; TEMP 98.6; O2SAT 89
[2024-07-22] MEDS: TAMSULOSIN 0.4 MG CAP PO SCH (20:20)
[2024-07-23 04:00] VITALS: BP 156/72; TEMP 98.6; O2SAT 88
[2024-07-23] MEDS: METOPROLOL TART 12.5 MG PER 1/2 TAB PO SCH (09:38)
[2024-07-23] MEDS: TRANEXAMIC ACID 100 MG/ML 10ML VIAL ONE (11:15)
[2024-07-23] MEDS: OXYMETAZOLINE 0.05% NASAL SPRAY (AFRIN) ONE (12:04)
[2024-07-23] MEDS: SODIUM CHLORIDE 0.65% NOSE DROPS 30ML BTL (BABY AYR) PRN (12:04)
[2024-07-23 12:15] VITALS: BP 115/42; TEMP 98.1; O2SAT 94
[2024-07-23 19:50] VITALS: BP 126/53; TEMP 98.2; O2SAT 93
[2024-07-24 03:50] VITALS: BP 147/72; TEMP 97.5; O2SAT 91
[2024-07-24 20:10] VITALS: BP 135/62; TEMP 97.3; O2SAT 91
[2024-07-24] MEDS: ACETAMINOPHEN 325 MG TAB PO PRN (20:11)
[2024-07-25 04:20] VITALS: BP 132/69; TEMP 97.3; O2SAT 94
[2024-07-25] MEDS ORDERED: CLOPIDOGREL 75 MG TAB PO SCH (09:00)
[2024-07-26 04:16] VITALS: BP 115/52; TEMP 97.9; O2SAT 96
[2024-07-26] MEDS: MIRALAX *UNIT DOSE* 17GM PACKET PO PRN (07:37)
[2024-07-26] MEDS: CLOPIDOGREL 75 MG TAB PO SCH (07:38)
[2024-07-26] MEDS: SENNA 8.6 MG TAB (SENOKOT) PO PRN (07:39)
[2024-07-26 11:17] LABS: HEMATOCRIT 36.4 % (36.0-47.0); HEMOGLOBIN 11.9 g/dl (12.0-15.5); MEAN CORPUSCULAR HEMOGLOBIN 29.3 pg (27.0-33.0); MEAN CORPUSCULAR HGB CONC 32.7 g/dl (32.0-36.5); MEAN CORPUSCULAR VOLUME 89.7 fl (80.0-96.0); PLATELET COUNT, AUTOMATED 217 10^3/uL (150-450); RED BLOOD COUNT 4.06 10^6/uL (4.00-5.40); WHITE BLOOD COUNT 7.8 10^3/uL (4.0-10.0)
[2024-07-26 11:44] LABS: BLOOD UREA NITROGEN 14 MG/DL (9-23); CALCIUM LEVEL 8.4 MG/DL (8.3-10.6); CARBON DIOXIDE LEVEL 27 MMOL/L (20-31); CHLORIDE LEVEL 101 MMOL/L (98-107); CREATININE FOR GFR 0.64 MG/DL (0.55-1.30); GLOMERULAR FILTRATION RATE > 60.0 (>32); GLUCOSE, FASTING 159 MG/DL (74-106); POTASSIUM SERUM 3.5 MMOL/L (3.5-5.1); SODIUM LEVEL 138 MMOL/L (136-145)
[2024-07-26] MEDS: FLEET ENEMA PR PRN (12:16)
[2024-07-26] MEDS: LACTULOSE 20GM/30ML SYRUP UDC PO ONE (12:16)
[2024-07-26 19:00] VITALS: O2SAT 93
[2024-07-26] MEDS: MOM 30ML SUSPENSION UDC PO PRN (20:41)
[2024-07-26 20:44] VITALS: TEMP 100.1; O2SAT 92
[2024-07-26 22:19] VITALS: TEMP 99.7
[2024-07-27] VITALS (13 sets, daily range): BP systolic 107–145; BP diastolic 55–70; TEMP 97.9–100; O2SAT 85–98
[2024-07-27 03:00] LABS: HEMATOCRIT 34.3 % (36.0-47.0); HEMOGLOBIN 11.3 g/dl (12.0-15.5); MEAN CORPUSCULAR HEMOGLOBIN 29.5 pg (27.0-33.0); MEAN CORPUSCULAR HGB CONC 32.9 g/dl (32.0-36.5); MEAN CORPUSCULAR VOLUME 89.6 fl (80.0-96.0); PLATELET COUNT, AUTOMATED 268 10^3/uL (150-450); RED BLOOD COUNT 3.83 10^6/uL (4.00-5.40); WHITE BLOOD COUNT 8.2 10^3/uL (4.0-10.0)
[2024-07-27 03:27] LABS: BLOOD UREA NITROGEN 13 MG/DL (9-23); CALCIUM LEVEL 8.3 MG/DL (8.3-10.6); CARBON DIOXIDE LEVEL 32 MMOL/L (20-31); CHLORIDE LEVEL 102 MMOL/L (98-107); CREATININE FOR GFR 0.67 MG/DL (0.55-1.30); GLOMERULAR FILTRATION RATE > 60.0 (>32); GLUCOSE, FASTING 113 MG/DL (74-106); POTASSIUM SERUM 4.6 MMOL/L (3.5-5.1); SODIUM LEVEL 140 MMOL/L (136-145)
[2024-07-27] MEDS: LACTULOSE 20GM/30ML SYRUP UDC PO PRN (06:16)
[2024-07-27] MEDS: guaiFENesin ER TABLET 600 MG TAB PO SCH (09:35)
[2024-07-28 03:42] VITALS: BP 138/65; TEMP 97; O2SAT 93
[2024-07-28 09:42] VITALS: BP 145/71
[2024-07-28 09:43] VITALS: O2SAT 94
[2024-07-28 09:49] VITALS: O2SAT 91
[2024-07-28 20:25] VITALS: TEMP 97.6; O2SAT 86
[2024-07-28 20:28] VITALS: BP 120/79; TEMP 100.7; O2SAT 92
[2024-07-28 21:44] LABS: VENOUS BASE EXCESS 1.8 (-2.0-2.0); VENOUS HCO3 26.6 MMOL/L (23.0-27.0); VENOUS O2 SATURATION 87.3 % (60.0-80.0); VENOUS PARTIAL PRESSURE CO2 42.7 mmHg (38.0-50.0); VENOUS PARTIAL PRESSURE O2 51.2 mmHg (30.0-50.0); VENOUS PH 7.413 UNITS (7.330-7.430); VENOUS STANDARD HCO3 25.8 MMOL/L
[2024-07-28 21:49] LABS: BASO % 0.4 % (0.0-1.0); EOS # 0.1 10^3/uL (0.0-0.5); EOS % 1.2 % (0.0-3.0); HEMATOCRIT 38.3 % (36.0-47.0); HEMOGLOBIN 12.6 g/dl (12.0-15.5); LYMPH # 1.8 10^3/uL (1.5-5.0); LYMPH % 19.6 % (24.0-44.0); MEAN CORPUSCULAR HEMOGLOBIN 29.4 pg (27.0-33.0); MEAN CORPUSCULAR HGB CONC 32.9 g/dl (32.0-36.5); MEAN CORPUSCULAR VOLUME 89.5 fl (80.0-96.0); MONO # 0.9 10^3/uL (0.0-0.8); MONO % 9.5 % (2.0-8.0); NEUTROPHILS # 6.5 10^3/uL (1.5-8.5); NEUTROPHILS % 68.8 % (36.0-66.0); PLATELET COUNT, AUTOMATED 311 10^3/uL (150-450); RED BLOOD COUNT 4.28 10^6/uL (4.00-5.40); WHITE BLOOD COUNT 9.4 10^3/uL (4.0-10.0)
[2024-07-28 21:53] LABS: ERYTHROCYTE SEDIMENTATION RATE > 130 mm/hr (0-30)
[2024-07-28 22:22] LABS: C REACTIVE PROTEIN QUANTITATIV 22.07 MG/DL (<1.0)
[2024-07-28 22:23] LABS: ALBUMIN 2.3 G/DL (3.2-5.2); ALKALINE PHOSPHATASE 151 U/L (35-104); ALT/SGPT 29 U/L (7.0-40); AST/SGOT 33 U/L (<34); BILIRUBIN,DIRECT 0.1 MG/DL (<0.4); BILIRUBIN,TOTAL 0.4 MG/DL (0.3-1.2); BLOOD UREA NITROGEN 14 MG/DL (9-23); CALCIUM LEVEL 8.4 MG/DL (8.3-10.6); CARBON DIOXIDE LEVEL 26 MMOL/L (20-31); CHLORIDE LEVEL 104 MMOL/L (98-107); CREATININE FOR GFR 0.66 MG/DL (0.55-1.30); GLOMERULAR FILTRATION RATE > 60.0 (>32); GLUCOSE, FASTING 139 MG/DL (74-106); MAGNESIUM LEVEL 2.1 MG/DL (1.8-2.4); SODIUM LEVEL 138 MMOL/L (136-145); TOTAL PROTEIN 6.7 G/DL (5.7-8.2)
[2024-07-28 22:30] LABS: PROCALCITONIN 0.08 ng/ml
[2024-07-29 00:03] VITALS: BP 114/54; TEMP 98.9; O2SAT 91
[2024-07-29 02:31] VITALS: O2SAT 91
[2024-07-29 04:00] VITALS: BP 120/55; TEMP 97.5; O2SAT 94
[2024-07-29 06:11] VITALS: O2SAT 91
[2024-07-29 08:00] VITALS: BP 123/56; TEMP 98; O2SAT 97
[2024-07-29] MEDS: AUGMENTIN 875 MG TAB PO SCH (09:02)
[2024-07-29 11:44] LABS: HEMOGLOBIN 12.3 g/dl (12.0-15.5); MEAN CORPUSCULAR HEMOGLOBIN 29.8 pg (27.0-33.0); MEAN CORPUSCULAR HGB CONC 33.2 g/dl (32.0-36.5); MEAN CORPUSCULAR VOLUME 89.6 fl (80.0-96.0); PLATELET COUNT, AUTOMATED 333 10^3/uL (150-450); RED BLOOD COUNT 4.13 10^6/uL (4.00-5.40); WHITE BLOOD COUNT 9.8 10^3/uL (4.0-10.0)
[2024-07-29 12:00] LABS: BLOOD UREA NITROGEN 14 MG/DL (9-23); CALCIUM LEVEL 8.9 MG/DL (8.3-10.6); CARBON DIOXIDE LEVEL 27 MMOL/L (20-31); CHLORIDE LEVEL 105 MMOL/L (98-107); CREATININE FOR GFR 0.73 MG/DL (0.55-1.30); GLOMERULAR FILTRATION RATE > 60.0 (>32); GLUCOSE, FASTING 111 MG/DL (74-106); POTASSIUM SERUM 4.6 MMOL/L (3.5-5.1); SODIUM LEVEL 138 MMOL/L (136-145)
[2024-07-29] MEDS: SENNA 8.6 MG TAB (SENOKOT) PO SCH (20:31)
[2024-07-29] MEDS: DOCUSATE SODIUM 100MG CAPSULE PO SCH (20:32)
[2024-07-30 04:00] VITALS: BP 132/61; TEMP 99.1; O2SAT 97
[2024-07-30 08:01] VITALS: BP 130/60
[2024-07-30] MEDS ORDERED: BABY0.65 (10:38)
[2024-07-30] MEDS ORDERED: IPRA0.00 NEB (10:38)
[2024-07-30] MEDS ORDERED: COLA100C5 PO (10:38)
[2024-07-30] MEDS ORDERED: FLOM0.4C39 PO (10:38)
[2024-07-30] MEDS ORDERED: MUCI600T31 PO (10:38)
[2024-07-30] MEDS ORDERED: MIRA33506 PO (10:38)
[2024-07-30] MEDS ORDERED: ACET32TAB PO (10:38)
[2024-07-30] MEDS ORDERED: AMOX875T2 PO (10:38)
[2024-07-30] MEDS ORDERED: SENO8.6T5 PO (10:38)
[2024-07-30] MEDS ORDERED: METO1TAB87 PO (10:38)
[2024-07-30] MEDS ORDERED: AMLO1TAB25 PO (10:38)
[2024-07-30 11:03] VITALS: O2SAT 93
== END 2024-07-30 14:10 | DRG 195 ==
LOC: EDSEX 10:52 → M ED 10:52 → EDBD 10:52 → M ED INP 14:28 → M MSPAV 15:48 → OBSVTOIN 07-23 14:45
PROVIDERS: ADMIT Internal Medicine; ATTEND Internal Medicine Nephrology
DX: J10.00 Influenza due to other identified influenza virus with unspecified type of pneumonia (principal); J15.9 Unspecified bacterial pneumonia; I10 Essential (primary) hypertension; R04.0 Epistaxis; R26.89 Other abnormalities of gait and mobility; F32.A Depression, unspecified; R53.1 Weakness; R53.81 Other malaise; Z90.49 Acquired absence of other specified parts of digestive tract; Z79.02 Long term (current) use of antithrombotics/antiplatelets; Z79.899 Other long term (current) drug therapy; Z88.8 Allergy status to other drugs, medicaments and biological substances; R09.02 Hypoxemia; J34.2 Deviated nasal septum; R33.9 Retention of urine, unspecified

== ENCOUNTER → 2024-08-02 | Outpatient (REF) ==
[~2024-08-02] MED LIST changes: +ACET32TAB PO; +AMLO1TAB25 PO; +AMOX875T2 PO; +BABY0.65; +BENZ-18 PO; +COLA100C5 PO; +IPRA0.00 NEB; +METOPROLOL PO; +MIRA33506 PO; +MUCI600T31 PO; +NYST10006 TOP; +OSEL75CA2 PO; +SENO8.6T5 PO; +VENL150C43 PO; +VENTAER INH
[2024-08-02 11:20] LABS: HEMATOCRIT 36.4 % (36.0-47.0); HEMOGLOBIN 11.8 g/dl (12.0-15.5); MEAN CORPUSCULAR HEMOGLOBIN 29.1 pg (27.0-33.0); MEAN CORPUSCULAR HGB CONC 32.4 g/dl (32.0-36.5); MEAN CORPUSCULAR VOLUME 89.9 fl (80.0-96.0); PLATELET COUNT, AUTOMATED 386 10^3/uL (150-450); RED BLOOD COUNT 4.05 10^6/uL (4.00-5.40)
[2024-08-02 11:36] LABS: BLOOD UREA NITROGEN 16 MG/DL (9-23); CARBON DIOXIDE LEVEL 26 MMOL/L (20-31); CHLORIDE LEVEL 103 MMOL/L (98-107); CREATININE FOR GFR 0.66 MG/DL (0.55-1.30); GLOMERULAR FILTRATION RATE > 60.0 (>32); GLUCOSE, FASTING 112 MG/DL (74-106); POTASSIUM SERUM 4.5 MMOL/L (3.5-5.1); SODIUM LEVEL 138 MMOL/L (136-145)
== END ==
PROVIDERS: ATTEND Physician Assistant
DX: J18.9 Pneumonia, unspecified organism (principal)

== ENCOUNTER → 2024-08-09 | Outpatient (REF) ==
[2024-08-09 10:56] LABS: HEMATOCRIT 39.7 % (36.0-47.0); HEMOGLOBIN 12.7 g/dl (12.0-15.5); MEAN CORPUSCULAR HEMOGLOBIN 29.2 pg (27.0-33.0); MEAN CORPUSCULAR VOLUME 91.3 fl (80.0-96.0); PLATELET COUNT, AUTOMATED 434 10^3/uL (150-450); RED BLOOD COUNT 4.35 10^6/uL (4.00-5.40); WHITE BLOOD COUNT 5.1 10^3/uL (4.0-10.0)
[2024-08-09 11:04] LABS: BLOOD UREA NITROGEN 22 MG/DL (9-23); CALCIUM LEVEL 8.7 MG/DL (8.3-10.6); CARBON DIOXIDE LEVEL 24 MMOL/L (20-31); CHLORIDE LEVEL 104 MMOL/L (98-107); CREATININE FOR GFR 0.69 MG/DL (0.55-1.30); GLOMERULAR FILTRATION RATE > 60.0 (>32); GLUCOSE, FASTING 132 MG/DL (74-106); POTASSIUM SERUM 4.5 MMOL/L (3.5-5.1); SODIUM LEVEL 139 MMOL/L (136-145)
== END ==
PROVIDERS: ATTEND Physician Assistant
DX: J18.9 Pneumonia, unspecified organism (principal)

== ENCOUNTER 2025-03-28 17:10 | Emergency (ER) | payer MEDICARE ==
[~2025-03-28] VITALS: Ht 172.7 cm; Wt 84.1 kg
[~2025-03-28 17:10] MED LIST changes: -FLOM0.4C39 PO; +SENN-225 PO; -SENO8.6T5 PO; +TAMS-18 PO
[2025-03-28] MEDS ORDERED: TRAM50TA2 PO (20:15)
[2025-03-28] MEDS ORDERED: MEDR4PAK PO (20:15)
[2025-03-28 20:21] VITALS: BP 124/59; TEMP 96.8; O2SAT 93
[2025-03-28] MEDS: ACETAMINOPHEN 325 MG TAB PO ONE (20:46)
[2025-03-28] MEDS: NAPROXEN 250 MG TAB PO ONE (20:47)
[2025-03-28] MEDS: traMADol 50 MG TAB PO ONE (20:47)
== END 2025-03-28 20:47 | disposition home or self-care (01) ==
LOC: M ED 17:10
DX: M51.360 Other intervertebral disc degeneration, lumbar region with discogenic back pain only (principal); M54.42 Lumbago with sciatica, left side; Z88.8 Allergy status to other drugs, medicaments and biological substances; Z79.1 Long term (current) use of non-steroidal anti-inflammatories (NSAID); Z79.51 Long term (current) use of inhaled steroids; Z79.2 Long term (current) use of antibiotics; Z79.899 Other long term (current) drug therapy

== ENCOUNTER 2025-04-20 17:03 | Emergency (ER) | payer MEDICARE ==
[~2025-04-20] VITALS: Ht 172.7 cm; Wt 84.1 kg
[~2025-04-20 17:03] MED LIST changes: -EZET10TA21 PO; +EZET10TA57 PO; +MEDR4PAK PO; +TRAM50TA2 PO
[2025-04-20 21:15] VITALS: BP 165/78; TEMP 97.5; O2SAT 97
[2025-04-20] MEDS: traMADol 50 MG TAB PO ONE (21:35)
== END 2025-04-20 21:53 | disposition home or self-care (01) ==
LOC: M ED 17:03
DX: S33.6XXA Sprain of sacroiliac joint, initial encounter (principal); I71.40 Abdominal aortic aneurysm, without rupture, unspecified; M47.816 Spondylosis without myelopathy or radiculopathy, lumbar region; Y92.019 Unspecified place in single-family (private) house as the place of occurrence of the external cause; Y93.9 Activity, unspecified; Y99.9 Unspecified external cause status; W01.0XXA Fall on same level from slipping, tripping and stumbling without subsequent striking against object, initial encounter; Z88.8 Allergy status to other drugs, medicaments and biological substances

== ENCOUNTER → 2025-06-07 | Outpatient (CLI) | payer MEDICARE | LOC: M RAD 12:58 | PROVIDERS: ATTEND Physician Assistant Medical | DX: M54.50 Low back pain, unspecified (principal) ==